=== PATIENT | male | born 1965 | race Caucasian/White ===

== ENCOUNTER 2017-12-05 13:37 | Emergency (ER) | payer OTHER ==
[~2017-12-05] VITALS: Ht 180.3 cm; Wt 90.7 kg
[~2017-12-05 13:37] MED LIST: AMITRIPTYLINE H10 M3 PO; BACTRIM DS TAB1 EACH PO; BENICAR; CHLORZOXAZONE500 MG PO; CLEOCIN HCL300 MG PO; DAYPRO600 MG PO; DESYREL50 MG PO; ELAVIL; ENDOCET 10-6501 EACH PO; FLEXERIL PO; GABAPENTIN; HYDROCODON-ACE1 EAC7 PO; IBUPROFEN 600600 M1 PO; LEVAQUIN 500 M500 M2 PO; LIPITOR 20 MG T20 M1 PO; NASAL SPRAY30 ML NS; NEURONTIN600 MG PO; NITROGLYCERIN0.4 MG SUBLING; NORCO 5-325 TA1 EACH PO; NORVASC10 MG PO; PERCOCET 10-321 EACH; PERCOCET 10-321 EACH PO; PERCOCET 10-651 EACH PO; PERCOCET PO; TRAMADOL 50 MG50 MG PO; TRAZODONE 150150 M1 PO; ULTRAM 50MG TAB50 MG; VALIUM5 MG PO; [UNRECOGNIZED DRUG - REMARK]
[2017-12-05] MEDS ORDERED: KEFLEX500 M1 PO (14:18)
[2017-12-05] MEDS ORDERED: BACTRIM DS TAB1 EACH PO (14:18)
[2017-12-05 14:51] VITALS: BP 168/110
== END 2017-12-05 14:52 | disposition home or self-care (01) ==
LOC: M.ERS 13:37
DX: L02.413 Cutaneous abscess of right upper limb (principal); I10 Essential (primary) hypertension; G62.9 Polyneuropathy, unspecified; Z88.1 Allergy status to other antibiotic agents; Z88.5 Allergy status to narcotic agent; Z88.8 Allergy status to other drugs, medicaments and biological substances; Z88.0 Allergy status to penicillin; Z91.013 Allergy to seafood; Z90.89 Acquired absence of other organs

== ENCOUNTER 2018-02-07 12:17 | Inpatient (IN) | payer OTHER ==
[~2018-02-07] VITALS: Ht 177.8 cm; Wt 88.5 kg
[2018-02-07] VITALS (19 sets, daily range): BP systolic 62–158; BP diastolic 42–120
[~2018-02-07 12:17] MED LIST changes: +KEFLEX500 M1 PO
--- NOTE | 2018-02-07 13:01 | NUR ---
PT TO GEOLOGICAL SPECIALIST
[2018-02-07 13:03] LABS: ANION GAP 12 mmol/L (7-16); BUN 19 mg/dL (7-18); CALCIUM 9.7 mg/dL (8.5-10.1); CHLORIDE 102 mmol/L (98-107); CO2 27 mmol/L (21-32); CREATININE 1.2 mg/dL (0.6-1.3); GLUCOSE 147 mg/dL (70-99); POTASSIUM 3.5 mmol/L (3.5-5.1); SODIUM 141 mmol/L (136-145)
[2018-02-07 13:06] LABS: INR 1.1; PROTIME 11.4 Seconds (9.20-11.50)
[2018-02-07 13:11] LABS: ABSOLUTE BASOPHILS 0.1 thou/uL (0.0-0.2); ABSOLUTE EOSINOPHILS 0.2 thou/uL (0.0-0.7); ABSOLUTE LYMPHOCYTES 2.5 thou/uL (0.8-5.3); ABSOLUTE MONOCYTES 0.8 thou/uL (0.0-1.2); ABSOLUTE NEUTROPHILS 6.7 thou/uL (1.6-8.1); BASOPHILS 0.9 %; EOSINOPHILS 2.2 %; HEMATOCRIT 45.4 % (42.0-52.0); HEMOGLOBIN 15.1 gm/dL (14.0-18.0); LYMPHOCYTES 23.9 %; MCH 30.3 pg (26.0-34.0); MCHC 33.3 g/dL (28.0-37.0); MONOCYTES 7.4 %; MPV 8.8 fl. (7.2-11.1); NUCLEATED RBCS 0 /100WBC; PLATELET COUNT* 323 thou/uL (150-400); POLYS 65.6 %; RBC 4.99 mil/uL (4.50-6.00); RDW-CV 13.9 % (10.5-14.5); WBC 10.3 thou/uL (4.0-11.0)
[2018-02-07 13:13] LABS: APTT 86.8 Seconds (25.0-31.3)
--- NOTE | 2018-02-07 13:18 | NUR ---
ARRIVED AT 1220- SEE CODE STEMI AND CODE BLUE FLOW SHEET.
[2018-02-07 13:22] LABS: ALBUMIN 3.7 g/dL (3.4-5.0); ALKALINE PHOSPHATASE 82 U/L (46-116); CK-MB MASS 2.3 ng/mL (<0.5-3.6); LIPASE 89 U/L (73-393); MAGNESIUM 1.8 mg/dL (1.8-2.4); NT-PRO BRAIN NAT PEPTIDE 56 pg/mL (<300); SGOT 16 U/L (15-37); SGPT 17 U/L (30-65); TOTAL BILIRUBIN 0.5 mg/dL (<0.1-1.0); TOTAL PROTEIN 7.8 g/dL (6.4-8.2); TROPONIN-I LEVEL <0.06 ng/mL (<0.06)
[2018-02-07 16:46] LABS: BE -9.9 mmol/L (-2 to +3); HCO3 18.6 mmol/L (22.0-26.0); PO2 67.7 mmHg (75.0-100.0)
[2018-02-07 16:47] LABS: pH 7.183 (7.340-7.450)
[2018-02-07 16:48] LABS: PCO2 50.5 mmHg (35.0-45.0)
[2018-02-07 17:41] LABS: AMP/METHAMP POSITIVE (Negative); BARBITURATES Negative (Negative); BENZODIAZEPINES POSITIVE (Negative); COCAINE Negative (Negative); METHADONE Negative (Negative); OPIATES POSITIVE (Negative); PCP Negative (Negative); THC Negative (Negative)
--- NOTE | 2018-02-07 18:00 | NUR ---
PATIENT ARRIVED TO ICU AT 1450 WITH TAPPER OPERATOR STAFF. ON BALLOON PUMP, NOT TOLERATING WELL. DR LINTON CALLED. CHANGES TO ORDERS WERE MADE. NOW ON 1:2 RATIO AND TOLERATING BETTER. INCREASED SEDATION, WEANING OFF PRESSORS AND TOLERATING WELL. PATIENT CONVERTED TO NSR AT 1800 FROM AFIB. STILL CONTINUES TO TOLERATE 1:2 ON BALLOON PUMP, WILL CALL DR LINTON IF CHANGES. 2 SISTERS, BROTHER IN LAW AND FRIEND IN TO SEE PATIENT. ALL INFORMATION GATHERED. PATIENT HAS BEEN HOMELESS FOR A YEAR NOW AND HAS NOT TAKEN MEDICATION FOR 6 MONTHS FROM PREVIOUS STENT A YEAR AGO. ALL BELONGINGS SENT HOME WITH PATIENT. PATIENT STABLE AT THIS TIME ON 4 MCG OF LEVO. REPORT GIVEN TO ANTONINA RGANADOS
--- NOTE | 2018-02-07 20:30 | NUR ---
ASSUMED PT CARE AT 1800. AT 1820 PTS RHYTHM CONVERTED FROM AFIB TO SR, RATE 70-80'S. BP BECAME ELEVATED, LEVOPHED WAS TITRATED OFF. SPOKE TO DR MONTANEZ, NOTIFIED OF RHYTHM CHANGE AND HTN, ORDERS RECEIVED. IABP SETTING CHANGED TO 1:3, PRESSURE CURRENTLY 128/87 PER IABP MONITOR.
[2018-02-08] VITALS (26 sets, daily range): BP systolic 116–142; BP diastolic 77–95
[2018-02-08 03:49] LABS: HEMATOCRIT 38.6 % (42.0-52.0); MCH 30.1 pg (26.0-34.0); MCHC 33.6 g/dL (28.0-37.0); MCV 89.5 fL (80.0-100.0); MPV 8.3 fl. (7.2-11.1); RBC 4.32 mil/uL (4.50-6.00); RDW-CV 14.2 % (10.5-14.5); WBC 8.3 thou/uL (4.0-11.0)
[2018-02-08 05:05] LABS: ALBUMIN 2.8 g/dL (3.4-5.0); CALCIUM 8.6 mg/dL (8.5-10.1); POTASSIUM 3.8 mmol/L (3.5-5.1); TOTAL BILIRUBIN 0.4 mg/dL (<0.1-1.0); TOTAL PROTEIN 5.6 g/dL (6.4-8.2)
[2018-02-08 05:07] LABS: TROPONIN-I LEVEL 25.17 ng/mL (<0.06)
[2018-02-08 05:13] LABS: HCO3 28.7 mmol/L (22.0-26.0); PCO2 39.1 mmHg (35.0-45.0); PO2 79.3 mmHg (75.0-100.0); pH 7.483 (7.340-7.450)
--- NOTE | 2018-02-08 06:54 | NUR ---
PT HAS REMAINED OFF PRESSORS, TOLERATING IABP AT 1:3. IABP BP READINGS CONSISTENTLY CORRELATE APPROXIMATELY 10 MMHG BELOW NIBP. FENTANYL GTT STARTED SO TO ALLOW DECREASE IN PROPOFOL FOR IMPROVED BP. UNABLE TO TITRATE OFF PROPOFOL DUE TO AROUSABILITY WITH MINIMAL STIMULATION, PT ATTEMPTED TO SIT UP AND PULL LINES. DURING THAT TIME PT WAS TRACKING, NODDED HEAD WHEN TOLD HE IS IN THE HOSPITAL DOING WELL. INSTRUCTED PT TO REST, HE AGAIN NODDED AND PUT HIS HEAD DOWN. SEDATION WAS INCREASED AT THAT TIME. AGGRASTAT GTT COMPLETED FOR ONE BAG PER DR LINTON. R GROIN IABP INSERTION SITE OOZING BLOOD INTERMITTENTLY. UNABLE TO BATH TONIGHT DUE TO PRESENCE OF IABP AND BLEEDING AT SITE. REPOSITIONED Q2HR BY TUCKING PILLOW UNDER HIP TO CHANGE PRESSURE POINT. RN 1:1 AT BEDSIDE AT ALL TIMES.
[2018-02-08 10:14] LABS: BE 2.1 mmol/L (-2 to +3); PCO2 54.3 mmHg (35.0-45.0); PO2 78.7 mmHg (75.0-100.0); pH 7.345 (7.340-7.450)
--- NOTE | 2018-02-08 10:40 | NUR ---
WEANING TRIAL SUCCESSFUL. CARDIOLOGY PAGED AND ORDERED TO PLACE BALLOON PUMP IN STANDBY AT 1040. BP 141/91 AND PATIENT IS CALM AND COOPERATIVE. ORDER RECEIVED TO EXTUBE IF CARDIOLOGY IS ABLE TO REMOVE BALLOON PUMP TODAY. WILL CONTINUE TO MONITOR 1:1.
--- NOTE | 2018-02-08 11:22 | CON ---
[address] [address] CONSULTATION Name: MARYJO FORRESTER I Room: [address] IN .R.#: [id number] Admission: 02/07/18 Attend Phys: Desiree Prather Discharge: Date of : 61 Report #: [id number] THIS REPORT FOR: //name// CC: [facility] physician/PCP Rahat Martínez DATE OF SERVICE: 02/07/2018 CHIEF COMPLAINT: Chest pain. HISTORY OF PRESENT ILLNESS: The patient is a 52-year-old man with a history of coronary artery disease, who had approximately one hour of severe chest discomfort and came to the Emergency Room, was noted to have inferior ST segment depression of 2-[address] segment depression involvement as well as diffuse anteroseptal ST segment depression. He was quite diaphoretic. His blood pressures are stable in the 150s-160s systolic. He had been feeling fine until this morning when he had sudden onset of diaphoresis, shortness of breath and the aforementioned chest discomfort. He has a known history of coronary artery disease and had been off of all medications. PAST MEDICAL HISTORY: Significant for coronary artery disease. He reports he had a PCI in March and then had been on Plavix for 3-5 months and he is somewhat unsure, but he has been off of all medications for several weeks now. ALLERGIES: He has no known drug allergies. PAST SURGICAL HISTORY: No recent surgeries. FAMILY HISTORY: Positive for high blood pressure and cholesterol. SOCIAL HISTORY: He is a smoker. REVIEW OF SYSTEMS: GASTROINTESTINAL: No nausea or vomiting. No hematemesis or melena. GENITOURINARY: No dysuria or hematuria. CARDIOVASCULAR: Positive chest pain. PULMONARY: Positive shortness of breath. SKIN: Positive diaphoresis. NEUROLOGIC: Denies seizures. ALLERGIES: Denies any aspirin or contrast dye allergies. PHYSICAL EXAMINATION: VITAL SIGNS: Blood pressure 160/100 in atrial fibrillation with [place] [address] [address] CONSULTATION Name: MARYJO FORRESTER I Room: [address] IN [facility]#: [id number] Admission: 02/07/18 Attend Phys: Desiree Prather Discharge: Date of : 61 Report #: [id number] GENERAL: This is a diaphoretic man in moderate distress. 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 HEENT: No evidence of trauma. Eyes are intact. No facial asymmetry. NECK: Supple. There is no jugular venous distention. CARDIOVASCULAR: Regular. I could not hear a murmur. LUNGS: Clear to auscultation. ABDOMEN: Nontender. EXTREMITIES: There is no peripheral edema. Pulses, radial and dorsalis pedis pulses are normal. Femoral pulses normal. DIAGNOSTIC DATA: ECG shows diffuse ST segment elevation in the inferior leads and lateral leads and ST segment depression in V1 and V2. He is in atrial fibrillation with heart rate of 120. Past data reviewed, heart catheterization in 09/2016 shows that the left main is patent. There is an 80% left anterior descending coronary artery stenosis. The circumflex had moderate disease in the 40-30% range and his right coronary artery was chronically occluded with collaterals. He underwent PCI of the right coronary artery at its mid body. EF was normal. IMPRESSION: 1. Inferior ST segment elevation myocardial infarction. 2. Chronic coronary artery disease. 3. Prior degenerative joint disease. 4. Medical noncompliance. PLAN: After discussing the risks and benefits of proceeding with an invasive evaluation, the patient elects to proceed. He presents a higher risk because of his known history of chronic coronary artery disease and noncompliance. He will be stabilized in the Emergency Room and we will plan for an invasive evaluation. <ELECTRONICALLY SIGNED> By: Benjamín Barfield MD, FACC 02/08/18 1122 1246 1946Benjamín Barfield MD, FACC /nt
--- NOTE | 2018-02-08 12:59 | EKG ---
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 : 1965 Requested By: Anish Ly Order Number: [id number] MD: Benjamín Barfield Measurements Intervals [place] Rate: 88 P: GA: QRS: 47 QRSD: 96 T: 98 QT: 391 QTc: 473 Interpretive Statements Incomplete analysis due to missing data in precordial lead(s) Atrial fibrillation Probable LVH with secondary repol abnrm Inferior infarct, acute (RCA) Probable RV involvement, suggest recording right precordial leads Baseline wander in lead(s) I,II,aVR,V1,V4 Missing lead(s): V6 Compared to ECG 10/17/2016 08:01:44 Myocardial infarct finding now present Sinus rhythm no longer present Right ventricular hypertrophy no longer present T-wave abnormality no longer present ST (T wave) deviation no longer present Electronically Signed On 02-08-2018 12:58:55 WOOD WEB WEAVING MACHINE OPERATOR by Benjamín Barfield [email or web address] <ELECTRONICALLY SIGNED> By: Benjamín Barfield MD, FACC 02/08/18 1258 1227 1227 Benjamín Barfield MD, FACC /EPI
--- NOTE | 2018-02-08 13:01 | EKG ---
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: : 1965 Requested By: Gary Reyes Order Number: [id number] Reading MD: Benjamín Barfield Measurements Intervals [place] Rate: 70 P: 52 ND: 160 QRS: 48 QRSD: 94 T: -25 QT: 435 QTc: 470 Interpretive Statements Sinus rhythm Borderline T abnormalities, inferior leads Compared to ECG 10/17/2016 08:01:44 Right ventricular hypertrophy no longer present ST (T wave) deviation no longer present T-wave abnormality still present Electronically Signed On 02-08-2018 13:00:51 WETLANDS TECHNICIAN by Benjamín Barfield [email or web address] <ELECTRONICALLY SIGNED> By: Benjamín Barfield MD, FACC 02/08/18 1300 0806 0806 Benjamín Barfield MD, FAC /EPI
[2018-02-08 13:19] LABS: CHOLESTEROL 93 mg/dL (<200); HDL CHOLESTEROL 38 mg/dL (>40); LDL CHOLESTEROL 35 mg/dL (<100); SERUM ASSESSMENT Clear; TC:HDL 2.4 Ratio (Not establshd); TRIGLYCERIDE 100 mg/dL (<150); VLDL 20 mg/dL (<40)
--- NOTE | 2018-02-08 20:07 | NUR ---
PT ASSESSMENT CHARTED. VSS THROUGHOUT SHIFT. BALLOON PUMP REMOVED AT 1115. PT EXTUBATED AT 1415. RIGHT GROIN SITE C,D &I WITHOUT HEMATOMA. VENOUS LINE STILL IN. GENERALIZED PAIN. PT IS ON 2L AND TOLERATING WITHOUT DIFFICULTY. PT IS TOLERATING CLEAR LIQUIDS AND WOULD DO WELL WITH A REGULAR DIET. YEE ONLY HAD 400 DARK URINE OUT. NO OTHER COMPLAINTS.
[2018-02-09] VITALS (14 sets, daily range): BP systolic 127–172; BP diastolic 58–103
--- NOTE | 2018-02-09 06:51 | NUR ---
PT REMAINS STABLE. ELEVATED BP TREATED WITH PRN ENALAPRIL X2 WITH GOOD RESULTS. TOLERATING PO INTAKE WITHOUT NAUSEA. O2 SAT REMAINS >92% ON 3L O2 PER NC. PT C/O RIB PAIN, TYLENOL AND IBUPROFEN ORDERED BY DR HAMILTON. PT MOVES INDEPENDENTLY IN BED. CALL LIGHT WITHIN REACH.
--- NOTE | 2018-02-09 08:11 | CON ---
[address] [address] CONSULTATION Name: MARYJO FORRESTER I Room: [address] IN M.R.#: [id number] Admission: 02/07/18 Attend Phys: Desiree Prather Discharge: Date of : 61 Report #: [id number] THIS REPORT FOR: //name// CC: [facility] physician/PCP Rahat Martínez DATE OF SERVICE: 02/08/2018 REASON FOR EVALUATION: Acute respiratory failure. CHIEF COMPLAINT: Chest pain, post-cardiac arrest. HISTORY OF PRESENT ILLNESS: The patient is a 52-year-old gentleman, known to have coronary artery disease, was brought from work with severe chest pain. It lasted for one hour. Initially, he was having a central line placement, had a cardiac arrest, was found to have inferior ST segment depression initially and with lateral ST segment depression as well and diffuse anteroseptal ST segment depression. The patient from the notes arrested for 6 minutes initially with ventricular fibrillation and after 6-minute was in atrial fibrillation per records. 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 Today, he is on intraaortic balloon pump. Yesterday, he was on Levophed, dopamine, which has been weaned off, today balloon pump is being weaned off. On my examination, the patient is sedated with propofol, however, arousable, following commands. Ventilator setting as above, tidal volume of 600, PEEP of 5. Chest x-ray with left base infiltrate. PAST MEDICAL HISTORY: Significant for coronary artery disease, PCI in March. He was not compliant with Plavix. ALLERGIES: None. PAST SURGICAL HISTORY: No recent surgery except PCI. FAMILY HISTORY: High blood pressure. SOCIAL HISTORY: Active smoker. REVIEW OF SYSTEMS: Unable to obtain, from records as above, the patient is intubated. PHYSICAL EXAMINATION: GENERAL: The patient is intubated. VITAL SIGNS: Stable. His respiratory rate is 18, pulse is 69, afebrile, blood pressure 120/82, O2 saturation 98%. [place] [address] CONSULTATION Name: FERNANDOMARYJO EID Jenelle Room: [address]#: [id number] Admission: 02/07/18 Attend Phys: Desiree Prather Discharge: Date of : 61 Report #: [id number] NECK: Supple. No JVD. SKIN: No changes. CHEST: Clear to auscultation, equal breath sounds. CARDIOVASCULAR: Regular rhythm. Normal S1, S2. ABDOMEN: Soft, nontender, obese. EXTREMITIES: No edema. PSYCHIATRIC: Unable to evaluate. NEUROLOGIC: Following commands, arousable, on sedation. LABORATORY DATA: Arterial blood gas today 7.413, pCO2 of 39, pO2 of 79. Vent setting, respiratory rate 18, tidal volume 600, FiO2 of 40% and PEEP of 5. Yesterday, arterial blood gas showed acute hypercapnic respiratory failure. Carbon dioxide today is 28. Chest x-ray, which I have reviewed too, showed a left base infiltrate. A raised hemidiaphragm. ET tube is slightly on the low position. We will pullback. ASSESSMENT AND PLAN: Acute respiratory failure following cardiac arrest with ventricular fibrillation, myocardial infarction, elevated troponin to 25. The patient post-angioplasty currently is awake, hemodynamically stable. We will proceed with weaning trial. A balloon pump being discontinued later today. Active smoker. Recommend the bronchodilator treatment to be used as needed. Possible chronic obstructive pulmonary disease. Smoking cessation highly recommended. Left base infiltrate, suspect that his ET tube was low versus aspiration. We will add Unasyn and obtain chest x-ray followup in the morning. Critical care time was 35 minutes. <ELECTRONICALLY SIGNED> By: Barrie Orellana MD 02/09/18 0811 0907 [id number] Michelle Ellison MD /nt
[2018-02-09 08:32] LABS: HEMATOCRIT 39.7 % (42.0-52.0); HEMOGLOBIN 13.2 gm/dL (14.0-18.0); MCH 30.4 pg (26.0-34.0); MCHC 33.2 g/dL (28.0-37.0); MCV 91.6 fL (80.0-100.0); MPV 8.5 fl. (7.2-11.1); RBC 4.34 mil/uL (4.50-6.00); RDW-CV 14.4 % (10.5-14.5); WBC 12.4 thou/uL (4.0-11.0)
[2018-02-09 08:58] LABS: ALBUMIN 2.5 g/dL (3.4-5.0); CALCIUM 8.9 mg/dL (8.5-10.1); CREATININE 0.9 mg/dL (0.6-1.3); POTASSIUM 4.4 mmol/L (3.5-5.1); TOTAL BILIRUBIN 0.9 mg/dL (<0.1-1.0); TOTAL PROTEIN 6.1 g/dL (6.4-8.2)
[2018-02-09 09:02] LABS: TROPONIN-I LEVEL 7.36 ng/mL (<0.06)
--- NOTE | 2018-02-09 10:45 | NUR ---
SPOKE WITH PT AND SISTER. PT DOES NOT HAVE A HOME OF HIS OWN, HE HAS STAYED VARIOUS PLACES FOR THE PAST 18 MONTHS. HE IS CURRENTLY STAYING WITH A FRIEND IN [address] HE IS ABLE TO RETURN THERE WHEN HE IS DISCHARGED. SISTER SAID THAT PT'S DISABILITY WAS TAKEN AWAY 'A YEAR OR SO AGO.' SHE WAS ASKING WHAT SHE COULD DO TO HELP HIM GET THAT RE-INSTATED. SHE SAID PT HAS NO MONEY FOR MEDICATIONS AND DOES NOT HAVE A PCP. DISCUSSED [facility] A POSSIBILITY FOR PCP FOLLOW UP AFTER DISCHARGE, HE DOES NOT HAVE A CAR BUT POTENTIALLY SOMEONE COULD TAKE HIM TO [facility]. WILL ASK CARDIOLOGY FOR SAMPLES OF ANY MEDS THAT THEY HAVE. SISTER WILLING TO HELP SOMEWHAT AFTER PT IS DISCHARGED BUT SHE SAID PT CANNOT COME LIVE WITH HER. SHE SAID PT IS HESITANT TO FILL OUR FORMS OR SIGN THINGS IF SHE ISN'T WITH HIM AND SHE IS WILLING TO HELP HIM WITH ANY PAPERWORK. PT DOES NOT HAVE A PHONE BUT SISTER, WINSOME, CAN BE CONTACTED AND TONYA REACH HIM AFTER DISCHARGE. HER CELL PHONE IS [phone]. CALLED [employer] AND LEFT A VOICE MAIL WITH ELEONORA ASKING HER TO COME TO THE HOSPITAL TO SCREEN PT FOR MEDICAID TODAY OR TOMORROW.
--- NOTE | 2018-02-09 13:44 | 2DMMODE ---
[place] [address] 2 D/M-MODE ECHOCARDIOGRAM Name: MARYJO FORRESTER I Room: 003 ADM IN [facility]#: [id number] Admission: 02/07/18 Attend Phys: Rahat Martínez Discharge: Date of : 61 Date of Service: 02/09/18 1344 Report #: [id number] THIS REPORT FOR: //name// APPROVED REPORT Study performed: 02/09/2018 10:43:43 EXAM: Comprehensive 2D, Doppler, and color-flow Echocardiogram Patient Location: In-Patient Room #: 003 Status: routine BSA: 2.07 HR: 67 bpm BP: 136/85 mmHg Rhythm: NSR Other Information Study Quality: Good Indications Acute MD 2D Dimensions IVSd: 11.81 (7-11mm) LVOT Diam: 20.57 (18-24mm) LVDd: 33.88 mm PWd: 10.05 (7-11mm) LVDs: 17.37 (25-40mm) Aortic Root: 33.54 mm Volumes Left Atrial Volume (Systole) LA ESV Index: 32.00 mL/m2 Aortic Valve AoV Peak Canelo.: 1.52 m/s AO Peak Gr.: 9.19 mmHg LVOT Max P.89 mmHg AO Mean Gr.: 4.93 mmHg LVOT Mean P.96 mmHg LVOT Max V: 1.49 m/s AO V2 VTI: 23.89 cm LVOT Mean V: 0.90 m/s PACO (VTI): 3.65 cm2 LVOT V1 VTI: 26.25 cm Mitral Valve E/A Ratio: 0.78 MV Decel. Time: 290.95 ms MV E Max Canelo.: 0.66 m/[place] [address] 2 D/M-MODE ECHOCARDIOGRAM Name: MARYJO FORRESTER I Room: [address] IN ..#: [id number] Admission: 02/07/18 Attend Phys: Rahat Martínez Discharge: Date of : 61 Date of Service: 02/09/18 1344 Report #: [id number] MV PHT: 84.38 ms MVA (PHT): 2.61 cm2 TDI E/Lateral E': 7.33 E/Medial E': 7.33 Medial E' Canelo.: 0.09 m/s Lateral E' Canelo.: 0.09 m/s Pulmonary Valve PV Peak Canelo.: 0.99 m/s PV Peak Gr.: 3.89 mmHg Left Ventricle The left ventricle is normal size. basal inferior segment is severely hypokinetic There is normal left ventricular wall thickness. Left ventricular systolic function is normal. The left ventricular ejection fraction is within the normal range. LVEF is 50%. Grade I - abnormal relaxation pattern. Right Ventricle The right ventricle is normal size. The right ventricular systolic function is normal. Atria The left atrium size is normal. The right atrium size is normal. Aortic Valve The aortic valve is normal in structure. No aortic regurgitation is present. There is no aortic valvular stenosis. Mitral Valve The mitral valve is normal in structure. Trace mitral regurgitation. No evidence of mitral valve stenosis. Tricuspid Valve The tricuspid valve is normal in structure. Unable to assess PA pressure. Trace tricuspid regurgitation. Pulmonic Valve The pulmonary valve is normal in structure. There is no pulmonic valvular regurgitation. Great Vessels The aortic root is normal in size. IVC is normal in size and collapses >50% [place] [address] 2 D/M-MODE ECHOCARDIOGRAM Name: MARYJO FORRESTER I Room: [address]#: [id number] Admission: 02/07/18 Attend Phys: Rahat Martínez Discharge: Date of : 61 Date of Service: 02/09/18 1344 Report #: [id number] Pericardium There is no pericardial effusion. <Conclusion> LVEF is 50%. basal inferior segment is severely hypokinetic There is no aortic valvular stenosis. No aortic regurgitation is present. Grade I - abnormal relaxation pattern. The right ventricular systolic function is normal. <ELECTRONICALLY SIGNED> By: Benjamín Barfield MD, FACC 02/09/18 1344 1344 134 Benjamín Barfield MD, FACC /INF
--- NOTE | 2018-02-09 16:36 | NUR ---
PATIENT PROGRESSING TOWARDS GOALS. AOX4 TOWARDS END OF SHIFT. PAIN CONTROLLED WITH 1 TAB HYDOROCODONE. PHYSICIAN EXPLAINED TO PATIENT HE IS NOT ALLOWED TO HAVE NSAIDS OVER THE COUNTER ANYMORE IT REACTS WITH HIS ANTI-PLATELET MEDICATIONS. RIGHT EJ DISCONTINUED BY PATIENT ON ACCIDENT. PRESSURE HELD, HEMOSTASIS REACHED. YEE CATHETER DISCONTINUED TODAY. UP TO CHAIR X1 AND UP NUMEROUS TIMES TO STAND TO URINATE IN URINAL WITH NURSING ASSISTANCE. PATIENT ADVANCED TO HEART HEALTHY DIET. TOLERATING WELL. PATIENT'S SISTER (DPOA) HERE, ALL QUESTIONS ANSWERED. PATIENT'S GIRLFRIEND SPOKE WITH HIM OVER THE PHONE. PATIENT RESTING MOST OF AFTERNOON, DENIES NEEDS WHEN ASKED. ABLE TO MAKE NEEDS KNOWN. CALL LIGHT WITHIN REACH. BED ALARM ON.
[2018-02-10] VITALS (17 sets, daily range): BP systolic 131–170; BP diastolic 81–105
[2018-02-10 03:50] LABS: ABSOLUTE EOSINOPHILS 0.3 thou/uL (0.0-0.7); ABSOLUTE LYMPHOCYTES 1.3 thou/uL (0.8-5.3); ABSOLUTE MONOCYTES 0.5 thou/uL (0.0-1.2); ABSOLUTE NEUTROPHILS 6.1 thou/uL (1.6-8.1); BASOPHILS 0.4 %; EOSINOPHILS 3.2 %; HEMATOCRIT 38.5 % (42.0-52.0); HEMOGLOBIN 12.9 gm/dL (14.0-18.0); MCH 30.4 pg (26.0-34.0); MCHC 33.5 g/dL (28.0-37.0); MCV 90.6 fL (80.0-100.0); MONOCYTES 6.1 %; MPV 8.6 fl. (7.2-11.1); NUCLEATED RBCS 0 /100WBC; PLATELET COUNT* 231 thou/uL (150-400); POLYS 74.3 %; RBC 4.25 mil/uL (4.50-6.00); RDW-CV 14.3 % (10.5-14.5); WBC 8.3 thou/uL (4.0-11.0)
[2018-02-10 03:59] LABS: ALBUMIN 2.6 g/dL (3.4-5.0); CALCIUM 9.1 mg/dL (8.5-10.1); CREATININE 0.9 mg/dL (0.6-1.3); POTASSIUM 3.9 mmol/L (3.5-5.1); TOTAL BILIRUBIN 0.4 mg/dL (<0.1-1.0); TOTAL PROTEIN 6.3 g/dL (6.4-8.2)
--- NOTE | 2018-02-10 06:08 | NUR ---
PROGRESSING TOWARD GOALS. ELEVATED BP EARLY IN SHIFT, CALL PLACED TO DR MONTEZ. PRN HYDRALAZINE GIVEN ORDERED WITH POSITIVE RESULTS. R GROIN CENTRAL LINE INTACT, NO BLEEDING OR HEMATOMA AT SITE. O2 SAT ON RA 94%, WHEN SLEEPING O2 SAT DROPPED TO LOW 80'S. 3L O2 PLACED PER NC WHILE SLEEPING. TOLERATING PO DIET WELL. ASSISTED PT TO STAND X3 TO USE URINAL, STAND BY ASSIST ONLY, STEADY GAIT. CALL LIGHT WITHIN REACH.
[2018-02-10 09:25] LABS: BE 4.1 mmol/L (-2 to +3); HCO3 29.3 mmol/L (22.0-26.0); PO2 80.4 mmHg (75.0-100.0); pH 7.422 (7.340-7.450)
--- NOTE | 2018-02-10 16:27 | NUR ---
PT CARE ASSUMED AFTER REPORT. SR/SB ON MONITOR. PT HR BRADYCARDIC AFTER COREG GIVEN. PRN PAIN MEDICATION GIVEN FOR REPORT OF CHEST PAIN R/T CHEST COMPRESSIONS. UP WITH STAND BY ASSIST. PT TRANSFERED TO ROOM 307. REPORT CALLED TO DARWIN ALLEN. BELONGINGS SENT WITH PT. PROGRESSING TOWARDS GOALS.
--- NOTE | 2018-02-10 17:33 | NUR ---
Saw patient in his room, evaluated him for ambulation, patient was in a NSR 02 at 3L, intermittent course sounding cough, crackles on the right midlobe down, decreased breath sound left base, SA02 94%, respirations nonlabored, coughed up small amount bright red blood, instructed him not to get out of bed by himself and that I was not going to walk him, but We would have him sit up in chair later this evening if he was feeling okay. Reported above assessment to nurse, nurse called ICU nurse who stated he had not had these problems prior to transfer, staff nurse stated she would call the health and safety trainer.
[2018-02-10 19:14] LABS: GLYCOHEMOGLOBIN (HGB A1C) 5.6 % (4.8-5.6)
[2018-02-10 22:54] LABS: URINE BILIRUBIN NEGATIVE (Negative); URINE BLOOD NEGATIVE (Negative); URINE CLARITY CLEAR; URINE COLOR YELLOW; URINE GLUCOSE-RANDOM NEGATIVE (Negative); URINE KETONES NEGATIVE (Negative); URINE LEUKOCYTES-REFLEX NEGATIVE (Negative); URINE NITRITE-REFLEX NEGATIVE (Negative); URINE PROTEIN NEGATIVE (Negative)
[2018-02-11] VITALS (8 sets, daily range): BP systolic 142–181; BP diastolic 87–103
[2018-02-11 04:21] LABS: CALCIUM 9.2 mg/dL (8.5-10.1); CREATININE 0.9 mg/dL (0.6-1.3); POTASSIUM 3.7 mmol/L (3.5-5.1)
--- NOTE | 2018-02-11 05:33 | NUR ---
ASSESSMENT: PT REAMIN ALERT AND ORIENT TIMES FOUR. UP TO BR WITH SBA. C/O PAIN IN CHEST AREA (NON-CARDIAC). PRN PAIN MEDICATIONS GIVEN WITH GOOD RELIEF. VSS, AFEBRILE. REMAIN ON 2 LITERS, WAS TITRATED DOWN WITH 02 SATS > 92%. RIGHT GROIN CENTRAL LINE INTACT, PATENT AND NON-PAINFUL. RIGHT AC PERIPERAL IV FLUSHES WELL. POSSIBLE DISCHARGE TO HOME TODAY. SLOW PROGRESS TOWARDS DC GOALS, WILL CONTINUE TO MONITOR.
--- NOTE | 2018-02-11 12:36 | CARD ---
[address] [address] CARDIAC CATH REPORT Name: MARYJO FORRESTER I Room: [address] IN [facility]#: [id number] Admission: 02/07/18 Attend Phys: Desiree Prather Discharge: Date of : 61 Report #: [id number] THIS REPORT FOR: //name// APPROVED REPORT Study performed: 02/07/2018 12:52:42 Patient Details Patient Status: In-Patient Room #: The patient is a 52 year-old male Procedures Performed cath pci, IABP, venous sheath Indication Abnormal ECG, STEMI , Atrial fibrillation, Chest pain Risk Factors Coronary Artery Disease Previous Procedures/Diagnoses Previous PCI Admission/Lab Medications/Medications given during procedure Glycoprotein IllbIlla Inhibitors, Heparin Unfract. Procedure Narrative The patient was brought emergently to the Cardiac Catheterization Laboratory and was prepped and draped in a sterile manner. The right femoral was infiltrated with 1% Lidocaine subcutaneous anesthesia. A 6 sheath was inserted into the right femoral artery. Coronary angiography was performed using coronary diagnostic catheters. The right coronary system was accessed and visualized with a Diagnostic catheter. The left coronary system was accessed and visualized with a Diagnostic catheter. Left ventricular/Aortic Valve gradient assessed via catheter pullback. There was no hematoma. Arterial sheath was removed at the end of the procedure and a 7 bhutanese sheathless IABP catheter placed and 1:1 counterpulsation was initiated. 7 bhutanese sheath was placed in the right femoral vein. Sheaths were sutured in place at the end of the procedure. Coronary Angiography The patient's coronary anatomy is right dominant. [address] [address] CARDIAC CATH REPORT Name: MARYJO FORRESTER I Room: [address] ..#: [id number] Admission: 02/07/18 Attend Phys: Desiree Prather Discharge: Date of : 61 Report #: [id number] Diagnostic Cath Left Main normal LAD proximal to mid 60%.,sluggish flow because of severe hypotension Diagonal 1 50% Circumflex mid 60-70% focal stenosis OM1 large mid calcified 60-70% then more distal 80% focal stenosis Right Coronary large RCA occluded within stent with thrombus Left Ventriculography Left Ventriculography was not performed. Hemodynamics The left ventricular end diastolic pressure is 20 mmHg. There was no gradient across the aortic valve upon pullback. Pullback from the left ventricle to the aorta revealed no gradient across the aortic valve. PCI Technique Lesion Anticoagulation was achieved with Heparin. iv aggrastat given Percutaneous coronary intervention was performed on the proximal right coronary artery. The lesion stenosis prior to intervention was 100% with AUDELIA 0 flow. A 6 fr jcr4 Guide Catheter was used to engage the rca ostium. A bmw Interventional Guidewire was used to cross the lesion. BALLOON DILATION A Balloon catheter 2.5 x 8 mm was inserted and inflated up to 16atm for 10seconds. Repeat angiography revealed the following post-dilatation results: 80% stenosis. Significant intracoronary thrombus noted. Pronto aspiration catheter inserted and aspiration of rca performed. STENT DEPLOYMENT A bare metal stent 3.5 x 18 mm was inserted and inflated up to 13atm for 15seconds. Repeat angiography revealed the following post-stent deployment results: 0% stenosis. Final angiography reveals 0 % stenosis with AUDELIA 3 flow. Conclusion 1. acute occlusion of a stent in the proximal rca 2. successful placement of a singel bare metal stent in the rca 3. IABP placed in the setting [place] [address] CARDIAC CATH REPORT Name: MITZYMARYJO Jenelle Room: [address] IN [facility]#: [id number] Admission: 02/07/18 Attend Phys: Desiree Prather Discharge: Date of : 61 Report #: [id number] Recommendations Aggressive Medical Therapy Diagnostic Cath Approved by: Benjamín Barfield MD Date/Time: <ELECTRONICALLY SIGNED> By: Uche Herring MD, [facility] 02/11/18 1236 1236 1236Daking Herring MD, FACC /INF
--- NOTE | 2018-02-11 15:34 | NUR ---
SCRAP CRANE OPERATOR SPOKE TO THE PATIENT AND HIS SISTER WINSOME TO ADDRESS THEIR CONCERNS. PATIENT'S SISTER INFORMS THAT SHE HAD WANTED TO F/U ON MEDICAID/DISABILITY [place], PCP INFO, AND NEEDED MEDICATIONS AT D/C. D/C OPERATIONS EXAMINER CONTACTED ELEONORA WITH [employer] AND LEFT A MESSAGE TO RETURN CALL TO DISCUSS CONTACTING PATIENT'S SISTER WINSOME. D/C OPERATIONS EXAMINER ALSO SPOKE TO RN TO INFORM OF THE NEED TO HAVE PATIENT D/C WITH AFFORDABLE MEDICATIONS. D/C OPERATIONS EXAMINER ALSO CONTACTED THE PATIENT'S DTR TO F/U PM HER CONCERNS, AND LEFT A MESSAGE TO RETURN CALL. CM WILL REMAIN AVIALABLE TO ASSIST AND FOLLOW NEEDED.
--- NOTE | 2018-02-11 16:52 | NUR ---
ASSESSMENT COMPLETE. PT ALERT AND ORIENTED X4. PT GIVEN FLEXERIL THIS AM, PT SLEEPY DURING THE MOST PART OF THE MORNING. PT IS ON ROOM AIR WITH ADEQUATE SATS. CXR TODAY SHOWS PNEUMONIA, IV LEVAQUIN ORDERED AND IS GIVEN TO PT BY RESPIRATORY THERAPY. PT IS UP WITH STANDBY ASSIST. CENTRAL LINE TO RIGHT GROIN INTACT. IV IN RIGHT AC, SL. PT UP WITH PT DURING THE DAY. PT TAKES MEDICATION FINE AND TOLERATING DIET. SEE ASSESSMENT AND VITALS FOR OTHER DETAILS. CALL LIGHT WITHIN REACH, WILL CONTINUE PLAN OF CARE
[2018-02-12 03:15] VITALS: BP 139/85
[2018-02-12 04:45] LABS: CALCIUM 9.6 mg/dL (8.5-10.1); CREATININE 0.9 mg/dL (0.6-1.3); POTASSIUM 4.2 mmol/L (3.5-5.1)
[2018-02-12 04:53] LABS: HEMATOCRIT 41.1 % (42.0-52.0); HEMOGLOBIN 13.7 gm/dL (14.0-18.0); MCH 30.2 pg (26.0-34.0); MCHC 33.3 g/dL (28.0-37.0); MCV 90.7 fL (80.0-100.0); MPV 8.7 fl. (7.2-11.1); NUCLEATED RBCS 0 /100WBC; PLATELET COUNT* 282 thou/uL (150-400); RBC 4.53 mil/uL (4.50-6.00); RDW-CV 14.2 % (10.5-14.5); WBC 6.4 thou/uL (4.0-11.0)
[2018-02-12 05:31] LABS: ABSOLUTE BASOPHILS 0.1 thou/uL (0.0-0.2); ABSOLUTE EOSINOPHILS 0.1 thou/uL (0.0-0.7); ABSOLUTE MONOCYTES 0.2 thou/uL (0.0-1.2); PLATELET ESTIMATE ADEQUATE
[2018-02-12 05:32] LABS: ANISOCYTOSIS 1+; POIKILOCYTOSIS 1+
[2018-02-12 08:00] VITALS: BP 132/80
[2018-02-12 12:17] VITALS: BP 142/84
[2018-02-12 16:23] VITALS: BP 144/100
--- NOTE | 2018-02-12 17:17 | NUR ---
SHIFT NOTE - R GROIN LINE DC'ED PER ORDER BY HEAD FILTER TANK TENDER HELPER. TOLERATED WELL. IV REPLACED. PT UP WITH PT AND WALKED HALLS. WILL CONTINUE TO MONITOR.
[2018-02-12 20:00] VITALS: BP 171/112
[2018-02-12 23:40] VITALS: BP 149/91
[2018-02-13] VITALS (7 sets, daily range): BP systolic 142–179; BP diastolic 95–117
[2018-02-13 04:14] LABS: ABSOLUTE BASOPHILS 0.1 thou/uL (0.0-0.2); ABSOLUTE EOSINOPHILS 0.3 thou/uL (0.0-0.7); ABSOLUTE LYMPHOCYTES 1.8 thou/uL (0.8-5.3); ABSOLUTE MONOCYTES 0.6 thou/uL (0.0-1.2); BASOPHILS 1.1 %; EOSINOPHILS 5.4 %; HEMATOCRIT 41.6 % (42.0-52.0); HEMOGLOBIN 14.3 gm/dL (14.0-18.0); MCH 30.8 pg (26.0-34.0); MCHC 34.4 g/dL (28.0-37.0); MCV 89.6 fL (80.0-100.0); MONOCYTES 10.1 %; MPV 8.7 fl. (7.2-11.1); NUCLEATED RBCS 0 /100WBC; PLATELET COUNT* 300 thou/uL (150-400); POLYS 52.4 %; RBC 4.64 mil/uL (4.50-6.00); RDW-CV 14.1 % (10.5-14.5); WBC 5.8 thou/uL (4.0-11.0)
[2018-02-13 04:16] LABS: CALCIUM 9.8 mg/dL (8.5-10.1); POTASSIUM 4.7 mmol/L (3.5-5.1)
--- NOTE | 2018-02-13 06:06 | NUR ---
ASSUMED PATIENT CARE A T 1900. INVESTMENT BANKING MANAGER AND HOURLY ROUNDING COMPLETED DOCUMENTED. PATIENTS DAUGHTER STATES THAT HE WILL NEED A CAB VOUCHER TO GET HOME UPON DISCHARGE. MINOR COMPLAINTS OF PAIN, CONTROLLED WITH ORAL MEDICATIONS
[2018-02-13] MEDS ORDERED: PRINIVIL20 MG PO (13:08)
[2018-02-13] MEDS ORDERED: PLAVIX 75 MG TA75 M1 PO ×2 (13:08→14:37)
[2018-02-13] MEDS ORDERED: COREG6.25 MG PO ×2 (13:09→14:37)
[2018-02-13] MEDS ORDERED: LEVAQUIN 750 M750 MG PO (14:36)
[2018-02-13] MEDS ORDERED: LISINOPRIL40 MG PO (14:37)
[2018-02-13] MEDS ORDERED: LIPITOR 20 MG T20 M1 PO (14:37)
[2018-02-13] MEDS ORDERED: ASPIR 8181 MG PO (14:38)
[2018-02-13] MEDS ORDERED: ACCUNEB SO1.25 MG/1 INH (14:39)
--- NOTE | 2018-02-13 16:40 | NUR ---
EVERTON was informed pt needed rx assistance and possibly a cab voucher. EVERTON spoke with pt sister and spoke with pt about one time rx assist and pt signed acknowledgement. EVERTON spoke with pt nurse about assistance as well. EVERTON faxed form and prescriptions to [place] [id number]. Pt sister to provide pt ride; no longer needs cab and sister will take pt to pharmacy to pick pack worker meds.
== END 2018-02-13 18:58 | disposition home or self-care (01) | DRG 248 ==
LOC: M.ERS 12:17 → M.TBA-CV 13:03 → M.ICU 13:03 → M.3W 02-10 16:27
PROVIDERS: Family Medicine; Internal Medicine Cardiovascular Disease; Internal Medicine Pulmonary Disease; ADMIT Internal Medicine
PROC: 4A023N7 Measurement of Cardiac Sampling and Pressure, Left Heart, Percutaneous Approach (ICD-10-PCS; principal; 2018-02-07)
PROC: B2111ZZ Fluoroscopy of Multiple Coronary Arteries using Low Osmolar Contrast (ICD-10-PCS; principal; 2018-02-07)
PROC: 02703DZ Dilation of Coronary Artery, One Artery with Intraluminal Device, Percutaneous Approach (ICD-10-PCS; principal; 2018-02-07)
PROC: 5A1935Z Respiratory Ventilation, Less than 24 Consecutive Hours (ICD-10-PCS; principal; 2018-02-07)
PROC: 0BH17EZ Insertion of Endotracheal Airway into Trachea, Via Natural or Artificial Opening (ICD-10-PCS; principal; 2018-02-07)
DX: I21.19 ST elevation (STEMI) myocardial infarction involving other coronary artery of inferior wall (principal); J15.6 Pneumonia due to other Gram-negative bacteria; J96.02 Acute respiratory failure with hypercapnia; I46.9 Cardiac arrest, cause unspecified; I49.01 Ventricular fibrillation; E44.0 Moderate protein-calorie malnutrition; I10 Essential (primary) hypertension; G62.9 Polyneuropathy, unspecified; I25.10 Atherosclerotic heart disease of native coronary artery without angina pectoris; F17.210 Nicotine dependence, cigarettes, uncomplicated; M19.90 Unspecified osteoarthritis, unspecified site; E78.5 Hyperlipidemia, unspecified; G89.29 Other chronic pain; M54.9 Dorsalgia, unspecified; J98.6 Disorders of diaphragm; I48.2 Chronic atrial fibrillation; J40 Bronchitis, not specified as acute or chronic; Z79.82 Long term (current) use of aspirin; Z68.28 Body mass index [BMI] 28.0-28.9, adult; Z88.8 Allergy status to other drugs, medicaments and biological substances; Z88.6 Allergy status to analgesic agent; Z88.0 Allergy status to penicillin; Z91.013 Allergy to seafood; Z95.5 Presence of coronary angioplasty implant and graft; Z82.49 Family history of ischemic heart disease and other diseases of the circulatory system; Z91.14 Patient's other noncompliance with medication regimen; Z79.899 Other long term (current) drug therapy; Z23 Encounter for immunization

== ENCOUNTER 2018-08-14 02:01 | Emergency (ER) | payer MEDICARE ==
[~2018-08-14] VITALS: Ht 177.8 cm; Wt 83.9 kg
[~2018-08-14 02:01] MED LIST changes: +ACCUNEB SO1.25 MG/1 INH; +ASPIR 8181 MG PO; +COREG6.25 MG PO; +LEVAQUIN 750 M750 MG PO; +LISINOPRIL40 MG PO; +PLAVIX 75 MG TA75 M1 PO; +PRINIVIL20 MG PO
[2018-08-14 02:38] LABS: ABSOLUTE BASOPHILS 0.1 thou/uL (0.0-0.2); ABSOLUTE EOSINOPHILS 0.2 thou/uL (0.0-0.7); ABSOLUTE LYMPHOCYTES 1.4 thou/uL (0.8-5.3); ABSOLUTE MONOCYTES 0.7 thou/uL (0.0-1.2); ABSOLUTE NEUTROPHILS 5.6 thou/uL (1.6-8.1); BASOPHILS 1.3 %; EOSINOPHILS 2.4 %; HEMATOCRIT 41.1 % (42.0-52.0); HEMOGLOBIN 13.5 gm/dL (14.0-18.0); MCH 30.5 pg (26.0-34.0); MCHC 32.9 g/dL (28.0-37.0); MCV 92.6 fL (80.0-100.0); MONOCYTES 8.2 %; MPV 8.1 fl. (7.2-11.1); NUCLEATED RBCS 0 /100WBC; PLATELET COUNT* 229 thou/uL (150-400); POLYS 70.1 %; RBC 4.44 mil/uL (4.50-6.00); RDW-CV 14.2 % (10.5-14.5)
[2018-08-14 02:51] LABS: ANION GAP 9 mmol/L (7-16); BUN 13 mg/dL (7-18); CALCIUM 9.5 mg/dL (8.5-10.1); CHLORIDE 105 mmol/L (98-107); CO2 29 mmol/L (21-32); GLUCOSE 103 mg/dL (70-99); SODIUM 143 mmol/L (136-145)
[2018-08-14 02:52] LABS: APTT 28.6 Seconds (25.0-31.3); INR 1.1; PROTIME 11.2 Seconds (9.20-11.50)
[2018-08-14 03:03] LABS: ALBUMIN 3.8 g/dL (3.4-5.0); ALKALINE PHOSPHATASE 96 U/L (46-116); CK-MB MASS 2.5 ng/mL (<0.5-3.6); LIPASE 56 U/L (73-393); MAGNESIUM 2.1 mg/dL (1.8-2.4); NT-PRO BRAIN NAT PEPTIDE 57 pg/mL (<300); SGOT 17 U/L (15-37); SGPT 20 U/L (30-65); TOTAL BILIRUBIN 1.3 mg/dL (<0.1-1.0); TOTAL PROTEIN 7.5 g/dL (6.4-8.2); TROPONIN-I LEVEL <0.06 ng/mL (<0.06)
[2018-08-14 03:34] VITALS: BP 170/99
--- NOTE | 2018-08-14 14:09 | EKG ---
[place] [address] ELECTROCARDIOGRAM REPORT Name: MARYJO FORRESTER [id number] Admission: 08/14/18 Attend Phys: Discharge: 08/14/18 Date of : 61 Report #: [id number] THIS REPORT FOR: //name// [facility] ED Test Date: 2018-08-14 Test Time: 02:27:48 Pat Name: MARYJO FORRESTER Department: Room: Gender: M Food Service Hotel Runner: BAYLEE : 1965 Requested By: Anish Ly Order Number: [id number] MD: Uche Herring Measurements Intervals [place] Rate: 105 P: 52 ME: 161 QRS: 27 QRSD: 84 T: QT: 336 QTc: 445 Interpretive Statements Sinus tachycardia Atrial premature complex Consider left ventricular hypertrophy Tall R wave in V2, consider RVH or PMI Baseline wander in lead(s) V2 Compared to ECG 02/08/2018 08:06:48 Atrial premature complex(es) now present Sinus rhythm no longer present Electronically Signed On 08-14-2018 14:09:17 CDT by Uche Herring [email or web address] <ELECTRONICALLY SIGNED> By: Uche Herring MD, [facility] 08/14/18 1409 6 Uche Herring MD, [facility] /EPI
== END 2018-08-14 03:35 ==
LOC: M.ERS 02:01
PROVIDERS: Family Medicine
DX: R07.89 Other chest pain (principal); I10 Essential (primary) hypertension; G62.9 Polyneuropathy, unspecified; Z88.1 Allergy status to other antibiotic agents; Z88.5 Allergy status to narcotic agent; Z88.8 Allergy status to other drugs, medicaments and biological substances; Z88.0 Allergy status to penicillin; Z90.13 Acquired absence of bilateral breasts and nipples; Z90.89 Acquired absence of other organs

== ENCOUNTER 2018-10-07 15:32 | Emergency (ER) | payer MEDICARE ==
[~2018-10-07] VITALS: Ht 175.3 cm; Wt 90.7 kg
[2018-10-07] MEDS ORDERED: KEFLEX500 M1 PO (16:26)
[2018-10-07 16:43] VITALS: BP 130/88
== END 2018-10-07 16:43 | disposition home or self-care (01) ==
LOC: M.ERS 15:32
DX: S61.412A Laceration without foreign body of left hand, initial encounter (principal); I10 Essential (primary) hypertension; G62.9 Polyneuropathy, unspecified; Z88.1 Allergy status to other antibiotic agents; Z88.0 Allergy status to penicillin; Z88.5 Allergy status to narcotic agent; Z91.013 Allergy to seafood; X58.XXXA Exposure to other specified factors, initial encounter; Y93.89 Activity, other specified; Y92.89 Other specified places as the place of occurrence of the external cause; Y99.8 Other external cause status

== ENCOUNTER 2019-01-18 13:09 | Emergency (ER) | payer MEDICARE ==
[~2019-01-18] VITALS: Ht 177.8 cm; Wt 90.7 kg
[2019-01-18] MEDS ORDERED: KEFLEX500 M1 PO (14:21)
[2019-01-18 14:31] VITALS: BP 146/75
== END 2019-01-18 14:32 | disposition home or self-care (01) ==
LOC: M.ERS 13:09
DX: S91.212A Laceration without foreign body of left great toe with damage to nail, initial encounter (principal); I10 Essential (primary) hypertension; I25.2 Old myocardial infarction; G62.9 Polyneuropathy, unspecified; Z90.89 Acquired absence of other organs; Z88.1 Allergy status to other antibiotic agents; Z88.0 Allergy status to penicillin; Z91.013 Allergy to seafood; W29.3XXA Contact with powered garden and outdoor hand tools and machinery, initial encounter; Y93.89 Activity, other specified; Y92.89 Other specified places as the place of occurrence of the external cause; Y99.0 Civilian activity done for income or pay

== ENCOUNTER 2019-09-09 12:03 | Emergency (ER) | payer MEDICARE ==
[~2019-09-09] VITALS: Ht 177.8 cm; Wt 90.7 kg
[2019-09-09] MEDS ORDERED: COREG6.25 MG PO (13:17)
[2019-09-09] MEDS ORDERED: NITROGLYCERIN0.4 MG SUBLING (13:17)
[2019-09-09] MEDS ORDERED: LIPITOR 20 MG T20 M1 PO (13:17)
[2019-09-09] MEDS ORDERED: TRIAMCINOLONE A80 G2 TOP (13:19)
[2019-09-09] MEDS ORDERED: PRINIVIL20 MG PO (13:19)
[2019-09-09] MEDS ORDERED: KEFLEX500 M1 PO (13:21)
[2019-09-09 13:26] VITALS: BP 131/98
== END 2019-09-09 13:27 | disposition home or self-care (01) ==
LOC: M.ERS 12:03
DX: S81.812A Laceration without foreign body, left lower leg, initial encounter (principal); S40.862A Insect bite (nonvenomous) of left upper arm, initial encounter; S40.861A Insect bite (nonvenomous) of right upper arm, initial encounter; S80.862A Insect bite (nonvenomous), left lower leg, initial encounter; S80.861A Insect bite (nonvenomous), right lower leg, initial encounter; L03.116 Cellulitis of left lower limb; I10 Essential (primary) hypertension; G62.9 Polyneuropathy, unspecified; Z76.0 Encounter for issue of repeat prescription; Z90.49 Acquired absence of other specified parts of digestive tract; Z91.013 Allergy to seafood; Z88.0 Allergy status to penicillin; Z88.6 Allergy status to analgesic agent; Z88.8 Allergy status to other drugs, medicaments and biological substances; W57.XXXA Bitten or stung by nonvenomous insect and other nonvenomous arthropods, initial encounter; Y93.89 Activity, other specified; Y92.89 Other specified places as the place of occurrence of the external cause; Y99.8 Other external cause status

== ENCOUNTER 2020-04-11 22:01 | Observation (INO) | payer MEDICARE, OTHER ==
[~2020-04-11] VITALS: Ht 177.8 cm; Wt 93.9 kg
[~2020-04-11 22:01] MED LIST changes: +TRIAMCINOLONE A80 G2 TOP
[2020-04-11 22:08] VITALS: BP 167/106
[2020-04-11 22:37] LABS: ABSOLUTE BASOPHILS 0.1 thou/uL (0.0-0.2); ABSOLUTE EOSINOPHILS 0.3 thou/uL (0.0-0.7); ABSOLUTE MONOCYTES 0.6 thou/uL (0.0-1.2); ABSOLUTE NEUTROPHILS 3.5 thou/uL (1.6-8.1); BASOPHILS 1.1 %; EOSINOPHILS 4.4 %; HEMATOCRIT 43.8 % (42.0-52.0); HEMOGLOBIN 14.6 gm/dL (14.0-18.0); LYMPHOCYTES 30.6 %; MCH 30.3 pg (26.0-34.0); MCHC 33.3 g/dL (28.0-37.0); MCV 90.9 fL (80.0-100.0); MONOCYTES 8.9 %; MPV 8.8 fl. (7.2-11.1); NUCLEATED RBCS 0 /100WBC; PLATELET COUNT* 218 thou/uL (150-400); RBC 4.81 mil/uL (4.50-6.00); RDW-CV 14.6 % (10.5-14.5); WBC 6.4 thou/uL (4.0-11.0)
[2020-04-11 22:41] LABS: CREATININE 1.1 mg/dL (0.6-1.3); POTASSIUM 4.1 mmol/L (3.5-5.1)
[2020-04-11 22:48] LABS: APTT 29.3 Seconds (25.0-31.3); INR 1.1; PROTIME 11.5 Seconds (9.20-11.50)
[2020-04-11 22:52] LABS: ALBUMIN 3.9 g/dL (3.4-5.0); TOTAL BILIRUBIN 0.4 mg/dL (<0.1-1.0); TOTAL PROTEIN 7.6 g/dL (6.4-8.2)
[2020-04-12] VITALS (7 sets, daily range): BP systolic 151–170; BP diastolic 97–121
[2020-04-12 06:51] LABS: AMP/METHAMP POSITIVE (Negative); BARBITURATES Negative (Negative); BENZODIAZEPINES Negative (Negative); COCAINE Negative (Negative); METHADONE Negative (Negative); OPIATES POSITIVE (Negative); PCP Negative (Negative); THC Negative (Negative)
[2020-04-12] MEDS ORDERED: ASPIR 8181 MG PO (08:08)
[2020-04-12] MEDS ORDERED: LIPITOR 20 MG T20 M1 PO (08:08)
[2020-04-12] MEDS ORDERED: NITROGLYCERIN0.4 MG SUBLING (08:08)
[2020-04-12 08:53] LABS: CHOLESTEROL 130 mg/dL (<200); HDL CHOLESTEROL 46 mg/dL (>40); LDL CHOLESTEROL 71 mg/dL (<100); SERUM ASSESSMENT Clear; TC:HDL 2.8 Ratio (Not establshd); TRIGLYCERIDE 66 mg/dL (<150); VLDL 13 mg/dL (<40)
--- NOTE | 2020-04-12 10:30 | EKG ---
[place] [address] ELECTROCARDIOGRAM REPORT Name: MARYJO FORRESTER I Room: [address] M.R.#: [id number] Admission: 04/12/20 Attend Phys: Rahat Martínez Discharge: Date of : 61 Date of Service: 04/11/202208 Report #: [id number] THIS REPORT FOR: //name// [facility] ED Test Date: 2020-04-11 Test Time: 22:09:53 Pat Name: MARYJO FORRESTER Department: Room: [facility] Gender: M Delicatessen Department Manager: ZACHARY : 1965 Requested By: Crystal Little Order Number: [id number] MD: Uche Herring Measurements Intervals [place] Rate: 98 P: 56 [place]: 160 QRS: 31 QRSD: 88 T: 109 QT: 331 QTc: 423 Interpretive Statements Sinus tachycardia Atrial premature complex Biatrial enlargement Abnormal R-wave progression, early transition Probable left ventricular hypertrophy Nonspecific T abnormalities, lateral leads Baseline wander in lead(s) V1,V3 Compared to ECG 08/14/2018 02:27:48 pac no noted Electronically Signed On 04-12-2020 10:30:35 DIGITAL PRODUCTION OPERATOR by Uche Herring [email or web address] <ELECTRONICALLY SIGNED> By: Uche Herring MD, [facility] 04/12/20 1030 08 08 Uche Herring MD, [facility] /EPI
--- NOTE | 2020-04-12 16:25 | EKG ---
[place] [address] ELECTROCARDIOGRAM REPORT Name: MARYJO FORRESTER I Room: [address] M.R.#: [id number] Admission: 04/12/20 Attend Phys: Rahat Martínez Discharge: Date of : 61 Date of Service: 04/12/[address] Report #: [id number] THIS REPORT FOR: //name// [facility] Test Date: 2020-04-12 Test Time: 06:26:15 Pat Name: MARYJO FORRESTER Department: Room: [place] [address] Gender: M Camelid Fiber Sorter: ANTONY : 1965 Requested By: Crystal Little Order Number: [id number] Jonathan MD: Uche Herring Measurements Intervals [place] Rate: 104 P: 65 [place]: 172 QRS: 34 QRSD: 89 T: 65 QT: 362 QTc: 477 Interpretive Statements Sinus tachycardia Atrial premature complex Right atrial enlargement Abnormal R-wave progression, early transition Borderline prolonged QT interval Compared to ECG 04/11/2020 22:09:53 no change Electronically Signed On 04-12-2020 16:25:16 FOOD PREPARATION SUPERVISOR by Uche Herring [email or web address] <ELECTRONICALLY SIGNED> By: Uche Herring MD, [facility] 04/12/20 1625 0626 Uche Herring MD, [facility] /EPI
--- NOTE | 2020-04-12 16:52 | CARD ---
[address] [address] CARDIAC CATH REPORT Name: MARYOJ FORRESTER I Room: [address] Sae Sifuentes#: [id number] Admission: 04/12/20 Attend Phys: Desiree Prather Discharge: Date of : 61 Report #: [id number] THIS REPORT FOR: cc: FAM - No family physician/PCP FAM - No family physician/PCP ~ Uche Herring MD [facility] ADDENDUM APPROVED REPORT Study performed: 04/12/2020 12:28:16 Patient Details Patient Status: In-Patient Room #: 227 The patient is a 54 year-old male Event Personnel Uche Herring Data Warehouse Consultant, Terra Danielle RN Parts Counter Clerk, Boone Santa RN Parts Counter Clerk, Sharmila Zimmerman RTR Monitor, Lisandro Cohen Scrub Procedures Performed Art Access - R radial artery , Coronary Angiography Only [id number] Brenden ESTEVEZ with Hemoband Indication Chest pain Risk Factors Hypercholesterolemia, Coronary Artery DiseaseHypertension, Tobacco History () Previous Procedures/Diagnoses Previous PCI Admission/Lab Medications/Medications given during procedure Solumedrol IV 125 mg, Benadryl IV 50 mg, Nitroglycerin IA 400 mcg, Verapamil IA 5 mg Procedure Narrative The patient was brought electively to the Cardiac Catheterization Laboratory and was prepped and draped in a sterile manner. The right wrist was infiltrated with 2% Lidocaine subcutaneous anesthesia. A 6F Slender [place] sheath was inserted into the right radial artery. Coronary angiography was performed using coronary diagnostic [place] [id number] CARDIAC CATH REPORT Name: MITZYMARYJO Jenelle Room: [address] Sae Sifuentes#: [id number] Admission: 04/12/20 Attend Phys: Desiree Prather Discharge: Date of : 61 Report #: [id number] catheters. The right coronary system was accessed and visualized with a 6F JR4 catheter. The left coronary system was accessed and visualized with a 6F JL4 catheter. Closure device was deployed with a 6 Fr Radial Vasc-Band Reg 24cm. The patient tolerated the procedure well and there were no complications associated with the procedure. There was no hematoma. Unable to cross aortic valve with pigtail catheter because of tortuous aorta. In the future I would consider procedure from the femoral approach. Unable to cannulate left main artery. Coronary arteries visualized with left cusp injection. Intraoperative Conscious Sedation Sedation start time: 13:32 Case end Time: 13:55 Fentanyl 25 mcg Versed 2 mg Fluoro Time: 3.2 minutes Dose: DAP 65396 cGycm2 922 mGy Contrast Type and Amount: Omnipaque 170 ml Coronary Angiography The patient's coronary anatomy is co- dominant. Diagnostic Cath Left Main 0% stenosis LAD 30% mid stenosis Circumflex 0% stenosis Right Coronary 30% proximal stenosis. Stent in mid RCA had 0% restenosis. Distal RCA had 30% stenosis RPLV 70% ostial stenosis Left Ventriculography Left Ventriculography was not performed. Hemodynamics The aortic pressure is 151/102 mmHg with a mean of 119 mmHg. Conclusion 1. no restenosis noted of the stent in the mid RCA 2. suspect [place] [address] CARDIAC CATH REPORT Name: MARYJO FORRESTER I Room: [address]#: [id number] Admission: 04/12/20 Attend Phys: Desiree Prather Discharge: Date of : 61 Report #: [id number] Recommendations Aggressive Medical Therapy <ELECTRONICALLY SIGNED> By: Uche Herring MD, FACC 04/12/201650 50 kaz Herring MD, FACC /INF
[2020-04-13] VITALS: BP 142/106
[2020-04-13 04:39] VITALS: BP 147/97
[2020-04-13 05:55] VITALS: BP 142/106
[2020-04-13 08:00] VITALS: BP 128/77
[2020-04-13 09:41] VITALS: BP 128/77
--- NOTE | 2020-04-13 14:33 | CON ---
[address] [address] CONSULTATION Name: MARYJO FORRESTER I Room: [address] Sae Sifuentes#: [id number] Admission: 04/12/20 Attend Phys: Desiree Prather Discharge: 04/13/20 Date of : 61 Report #: [id number] THIS REPORT FOR: cc: FAM - No family physician/PCP FAM - No family physician/PCP ~ Uche Herring MD [facility] DATE OF SERVICE: 04/12/2020 CARDIOLOGY CONSULTATION HISTORY OF PRESENT ILLNESS: The patient is a 54-year-old single white male who I was asked to see in the hospital after he complained of chest pain. The patient apparently presented in 09/2016 with chest pain here to [place]. He was seen by Dr. Devon Mack. The right coronary artery was totally occluded. Ejection fraction 55%. Dr. Mack then placed a drug-eluting stent in the right coronary artery with reperfusion. Ejection fraction was 60%. Unfortunately, the patient has not had followup since that time. He is no longer taking any medications. He is not very active at this time. Recently, he has been having recurrent chest pain. It is worse if he takes a deep breath or moves his arm. Goes into his shoulders. It can make him short of breath. He has had no fever or cough. He does have occasional fast heartbeat, but has had no syncope. He has had no bleeding. Denied any fever. He finally came to the hospital yesterday and was admitted for further evaluation and treatment. PAST MEDICAL HISTORY: Significant for hernia repair, back surgery at [facility]. He has a history of hypertension, hyperlipidemia. No diabetes. MEDICATIONS: His previous medications include aspirin, Lipitor, carvedilol, Plavix; however, he is not taking any medications at this time. ALLERGIES: HE HAS A PREVIOUS INTOLERANCE TO CODEINE AND PENICILLIN. FAMILY HISTORY: Positive for heart disease. SOCIAL HISTORY: He is , lives with a friend in [place]. 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 He does smoke occasionally. No history of alcohol abuse. He does have a history of illicit drug use including methamphetamines, which he recently used 3 days ago. He apparently has been to rehab twice, used to be homeless and lived at [facility]. PHYSICAL EXAMINATION: GENERAL: Revealed a middle-aged male, [place] [address] CONSULTATION Name: MARYJO FORRESTER I Room: [address] Sae Sifuentes#: [id number] Admission: 04/12/20 Attend Phys: Desiree Prather Discharge: 04/13/20 Date of : 61 Report #: [id number] VITAL SIGNS: His blood pressure was 150/90, pulse is 90, he is afebrile. HEENT: He was anicteric. Conjunctivae pink. Mucous membranes are moist. NECK: Veins do not appear distended. No carotid bruits. CHEST: Clear to auscultation. CARDIOVASCULAR: Regular rate and rhythm. ABDOMEN: Soft. EXTREMITIES: Had no edema. Posterior tibial pulse 2+ bilaterally. SKIN: Cool and dry. NEUROLOGIC: Nonfocal. LYMPH: No adenopathy. MUSCULOSKELETAL: No joint effusion. RADIOLOGICAL DATA: ECG showed a sinus rhythm with nonspecific ST-segment changes. His workup in the Emergency Room yesterday, he had a portable chest x-ray that showed cardiomegaly, elevated left hemidiaphragm, some atelectasis. LABORATORY WORK: Sodium 141, creatinine 1.1. Liver function studies were normal. Troponins all less than 0.06. Previous LDL was only 35. Previous TSH was 0.8. His white blood cell count 6.4, hemoglobin 14.6. His urine drug screen was positive for methamphetamines and opioids. IMPRESSION AND RECOMMENDATIONS: 1. Chest pain. Previous stent. Recommend cardiac catheterization. 2. History of hypertension. The patient has been on a beta-samir in the past. 3. Hyperlipidemia. The patient is on a statin drug in the past. 4. Tobacco abuse. 5. History of illicit drug use. <ELECTRONICALLY SIGNED> By: Uche Herring MD, FACC 04/13/20 1433 0829 0839Daking eHrring MD, FACC /nt
== END 2020-04-13 11:45 | disposition home or self-care (01) ==
LOC: M.ERS 22:01 → M.TBA-ER 04-12 00:10 → M.2W 04-12 00:10
PROVIDERS: Internal Medicine; Personal Emergency Response Attendant; ADMIT Internal Medicine; ATTEND Internal Medicine
DX: I25.110 Atherosclerotic heart disease of native coronary artery with unstable angina pectoris (principal); Z20.822 Contact with and (suspected) exposure to COVID-19; I10 Essential (primary) hypertension; G89.29 Other chronic pain; M54.9 Dorsalgia, unspecified; G62.9 Polyneuropathy, unspecified; Z79.82 Long term (current) use of aspirin; Z79.899 Other long term (current) drug therapy; Z88.1 Allergy status to other antibiotic agents; Z88.5 Allergy status to narcotic agent; Z88.0 Allergy status to penicillin; Z91.013 Allergy to seafood

== ENCOUNTER 2020-06-22 01:05 | Emergency (ER) | payer MEDICARE, OTHER ==
[~2020-06-22] VITALS: Ht 177.8 cm; Wt 90.7 kg
[2020-06-22 01:34] LABS: ABSOLUTE BASOPHILS 0.1 thou/uL (0.0-0.2); ABSOLUTE EOSINOPHILS 0.1 thou/uL (0.0-0.7); ABSOLUTE LYMPHOCYTES 1.3 thou/uL (0.8-5.3); ABSOLUTE MONOCYTES 0.7 thou/uL (0.0-1.2); ABSOLUTE NEUTROPHILS 10.3 thou/uL (1.6-8.1); BASOPHILS 0.7 %; HEMATOCRIT 45.6 % (42.0-52.0); HEMOGLOBIN 15.1 gm/dL (14.0-18.0); LYMPHOCYTES 10.4 %; MCH 30.4 pg (26.0-34.0); MCHC 33.1 g/dL (28.0-37.0); MCV 91.9 fL (80.0-100.0); MONOCYTES 5.5 %; MPV 8.6 fl. (7.2-11.1); NUCLEATED RBCS 0 /100WBC; PLATELET COUNT* 182 thou/uL (150-400); POLYS 82.4 %; RBC 4.97 mil/uL (4.50-6.00); RDW-CV 13.8 % (10.5-14.5); WBC 12.6 thou/uL (4.0-11.0)
[2020-06-22] MEDS ORDERED: CARVEDILOL25 MG PO ×2 (01:35→04:58)
[2020-06-22] MEDS ORDERED: LISINOPRIL20 MG PO ×2 (01:36→04:58)
[2020-06-22] MEDS ORDERED: FAMOTIDINE 10 M10 MG PO (01:36)
[2020-06-22] MEDS ORDERED: PLAVIX 75 MG TA75 MG PO (01:36)
[2020-06-22] MEDS ORDERED: NEURONTIN 300M300 M2 PO (01:37)
[2020-06-22] MEDS ORDERED: FLEXERIL PO ×2 (01:37→04:58)
[2020-06-22] MEDS ORDERED: FLOMAX0.4 MG PO (01:37)
[2020-06-22 01:42] LABS: CALCIUM 9.5 mg/dL (8.5-10.1); CREATININE 1.1 mg/dL (0.6-1.3); POTASSIUM 3.9 mmol/L (3.5-5.1)
[2020-06-22 01:47] LABS: ALBUMIN 3.5 g/dL (3.4-5.0); TOTAL BILIRUBIN 0.8 mg/dL (<0.1-1.0); TOTAL PROTEIN 7.6 g/dL (6.4-8.2)
[2020-06-22 04:18] LABS: URINE BILIRUBIN NEGATIVE (Negative); URINE BLOOD NEGATIVE (Negative); URINE CLARITY CLEAR; URINE COLOR YELLOW; URINE GLUCOSE-RANDOM NEGATIVE (Negative); URINE KETONES NEGATIVE (Negative); URINE LEUKOCYTES-REFLEX NEGATIVE (Negative); URINE NITRITE-REFLEX NEGATIVE (Negative); URINE PROTEIN NEGATIVE (Negative); URINE SPECIFIC GRAVITY 1.015 (1.005-1.030); URINE UROBILINOGEN 0.2 E.U./dl (0.2-1.0)
[2020-06-22 04:27] LABS: AMP/METHAMP POSITIVE (Negative); BARBITURATES Negative (Negative); BENZODIAZEPINES Negative (Negative); COCAINE Negative (Negative); METHADONE Negative (Negative); OPIATES POSITIVE (Negative); PCP Negative (Negative); THC Negative (Negative)
[2020-06-22] MEDS ORDERED: LIPITOR40 MG PO (04:58)
[2020-06-22 05:15] VITALS: BP 148/105
--- NOTE | 2020-06-22 11:02 | EKG ---
[place] [address] ELECTROCARDIOGRAM REPORT Name: MARYJO FORRESTER I Room: [facility]#: [id number] Admission: 06/22/20 Attend Phys: Discharge: Date of : 61 Date of Service: 06/22/20 0133 Report #: [id number] THIS REPORT FOR: //name// [facility] ED Test Date: 2020-06-22 Test Time: 01:33:25 Pat Name: MARYJO FORRESTER Department: Room: Gender: Canning Machine Operator: [place] : 1965 Requested By: Nveaeh Muniz Order Number: [id number] MD: Uche Herring Measurements Intervals [place] Rate: 102 P: 0 [place]: 162 QRS: 22 QRSD: 84 T: -46 QT: 324 QTc: 423 Interpretive Statements Sinus tachycardia Atrial premature complex LAE, consider biatrial enlargement Probable left ventricular hypertrophy Tall R wave in V2, consider RVH or PMI Borderline T abnormalities, inferior leads Baseline wander in lead(s) V4 Compared to ECG 04/12/2020 06:26:15 no change Electronically Signed On 06-22-2020 11:02:29 CDT by Uche Herring [email or web address] <ELECTRONICALLY SIGNED> By: Uche Herring MD, FACC 06/22/20 1102 2 2 Uche Herring MD, FAC /EPI
--- NOTE | 2020-06-22 11:03 | EKG ---
[place] [address] ELECTROCARDIOGRAM REPORT Name: MARYJO FORRESTER I Room: [facility]#: [id number] Admission: 06/22/20 Attend Phys: Discharge: Date of : 61 Date of Service: 06/22/20 0336 Report #: [id number] THIS REPORT FOR: //name// [facility] ED Test Date: 2020-06-22 Test Time: 03:36:08 Pat Name: MARYJO FORRESTER Department: Room: Gender: Crop Roller: [place] : 1965 Requested By: Nevaeh Muniz Order Number: [id number] MD: Uche Herring Measurements Intervals [place] Rate: 95 P: 59 [place]: 156 QRS: 34 QRSD: 91 T: 79 QT: 345 QTc: 434 Interpretive Statements Sinus rhythm Biatrial enlargement Abnormal R-wave progression, early transition Probable LVH with secondary repol abnrm Baseline wander in lead(s) V4 Compared to ECG 06/22/2020 01:33:25 Sinus tachycardia no longer present Atrial premature complex(es) no longer present Electronically Signed On 06-22-2020 11:03:23 CDT by Uche Herring [email or web address] <ELECTRONICALLY SIGNED> By: Uche Herring MD, FACC 06/22/20 1103 0336 0336 Uche Herring MD, FAC /EPI
== END 2020-06-22 05:26 | disposition home or self-care (01) ==
LOC: M.ERS 01:05
PROVIDERS: Emergency Medicine
DX: I10 Essential (primary) hypertension (principal); F15.10 Other stimulant abuse, uncomplicated; Z20.822 Contact with and (suspected) exposure to COVID-19; Z91.14 Patient's other noncompliance with medication regimen; Z88.1 Allergy status to other antibiotic agents; Z88.0 Allergy status to penicillin; Z88.5 Allergy status to narcotic agent; Z91.013 Allergy to seafood

== ENCOUNTER 2020-09-04 17:47 | Inpatient (IN) | payer MEDICARE, OTHER ==
[2020-09-04] VITALS (19 sets, daily range): BP systolic 127–157; BP diastolic 92–113
[~2020-09-04] VITALS: Ht 175.3 cm; Wt 88.0 kg
[~2020-09-04 17:47] MED LIST changes: +CARVEDILOL25 MG PO; +FAMOTIDINE 10 M10 MG PO; +FLOMAX0.4 MG PO; +LIPITOR40 MG PO; +LISINOPRIL20 MG PO; +NEURONTIN 300M300 M2 PO; +PLAVIX 75 MG TA75 MG PO
[2020-09-04 18:09] LABS: ABSOLUTE BASOPHILS 0.1 thou/uL (0.0-0.2); ABSOLUTE EOSINOPHILS 0.2 thou/uL (0.0-0.7); ABSOLUTE LYMPHOCYTES 2.4 thou/uL (0.8-5.3); ABSOLUTE MONOCYTES 0.6 thou/uL (0.0-1.2); ABSOLUTE NEUTROPHILS 4.9 thou/uL (1.6-8.1); BASOPHILS 1.3 %; HEMATOCRIT 45.5 % (42.0-52.0); HEMOGLOBIN 15.5 gm/dL (14.0-18.0); LYMPHOCYTES 28.9 %; MCHC 34.1 g/dL (28.0-37.0); MCV 90.9 fL (80.0-100.0); MONOCYTES 7.9 %; MPV 8.7 fl. (7.2-11.1); NUCLEATED RBCS 0 /100WBC; PLATELET COUNT* 306 thou/uL (150-400); POLYS 59.9 %; RDW-CV 14.1 % (10.5-14.5); WBC 8.2 thou/uL (4.0-11.0)
[2020-09-04 18:18] LABS: CALCIUM 10.2 mg/dL (8.5-10.1); CREATININE 1.6 mg/dL (0.6-1.3); POTASSIUM 3.7 mmol/L (3.5-5.1)
[2020-09-04 18:20] LABS: APTT 22.1 Seconds (25.0-31.3); PROTIME 11.1 Seconds (9.20-11.50)
[2020-09-04 18:28] LABS: MAGNESIUM 2.1 mg/dL (1.8-2.4); TOTAL BILIRUBIN 0.5 mg/dL (<0.1-1.0); TOTAL PROTEIN 8.7 g/dL (6.4-8.2)
--- NOTE | 2020-09-04 18:49 | NUR ---
SEE STEMI SHEET FOR FURTHER DOCUMENTATION
[2020-09-05] VITALS (16 sets, daily range): BP systolic 118–175; BP diastolic 68–111
[2020-09-05 02:57] LABS: HEMATOCRIT 38.9 % (42.0-52.0); HEMOGLOBIN 13.8 gm/dL (14.0-18.0); MCHC 35.4 g/dL (28.0-37.0); MCV 90.4 fL (80.0-100.0); MPV 8.7 fl. (7.2-11.1); RBC 4.3 mil/uL (4.50-6.00); RDW-CV 14.2 % (10.5-14.5); WBC 7.7 thou/uL (4.0-11.0)
[2020-09-05 03:13] LABS: ALBUMIN 3.2 g/dL (3.4-5.0); ALKALINE PHOSPHATASE 92 U/L (46-116); ANION GAP 8 mmol/L (7-16); BUN 15 mg/dL (7-18); CHLORIDE 102 mmol/L (98-107); CHOLESTEROL 127 mg/dL (<200); CO2 28 mmol/L (21-32); CREATININE 1.1 mg/dL (0.6-1.3); GLUCOSE 114 mg/dL (70-99); HDL CHOLESTEROL 42 mg/dL (>40); LDL CHOLESTEROL 65 mg/dL (<100); POTASSIUM 3.8 mmol/L (3.5-5.1); SGOT 38 U/L (15-37); SGPT 21 U/L (30-65); SODIUM 138 mmol/L (136-145); TOTAL BILIRUBIN 0.4 mg/dL (<0.1-1.0); TRIGLYCERIDE 101 mg/dL (<150); VLDL 20 mg/dL (<40)
[2020-09-05 03:15] LABS: SERUM ASSESSMENT Clear
--- NOTE | 2020-09-05 05:53 | NUR ---
ASSUMED PT CARE AT APPROX. 2109. REPORT TAKEN FROM DARWIN SARKAR. PT ADMITTED FOR STEMI. PT HAD A STENT PLACED TO RCA, ANGIOSEAL DEVICE PLACED IN RIGHT FEMORAL GROIN. DRESSING TO RIGHT GROIN IS C/D/I. NO HEMATOMA PRESENT. PT DENIES C/O CHEST PAIN. PT IS A/OX4. 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 HTN NOTED. PT HAS PMH OF HTN AND NON-COMPLIANT W/ MEDICATIONS. PT WAS ON RA. O2 PLACED DURING THE NOC D/T DESAT WHILE SLEEPING. O2 PLACED VIA NC AT 2L/MIN. O2 SATS 96-100%. PT HAS YEE IN PLACE TO DRAIN D/T IMMOBILIZATION. ADMISSION ASSESSMENTS COMPLETE CHARTED. POST CARDIAC CATH DOCUMENTATION COMPLETE CHARTED. MEDICATIONS ADMINISTERED PRESCRIBED. ANGIOMAX COMPLETED AT MIDNIGHT PER ORDER. PT HAS NS INFUSING PRESCRIBED. ORDER RECEIVED TO STOP NS INFUSTION AT 0800. PT RESTED IN BED DURING NOC. PT DENIED C/O CHEST PAIN. PT C/O CHRONIC BACK PAIN. PT REFUSED MEDICATION FOR PAIN. FALL PRECAUTIONS IN PLACE FOR SAFETY. ASSESSMENTS COMPLETE CHARTED. PT CURRENTLY SLEEPING. NO C/O VOICED. WILL CONT. TO MONITOR.
--- NOTE | 2020-09-05 09:50 | EKG ---
[place] [address] ELECTROCARDIOGRAM REPORT Name: RALPH FORRESTER I Room: [address] ADM IN M.R.#: [id number] Admission: 09/04/20 Attend Phys: Ashwini Rivero Discharge: Date of : 61 Date of Service: 09/04/20 175 Report #: [id number] THIS REPORT FOR: //name// [facility] ED Test Date: 2020-09-04 Test Time: 17:51:44 Pat Name: RALPH MITZY Department: Room: [facility] Gender: M Document Processor: OANH : 1965 Requested By: Bakari Rodriguez Order Number: [id number] MD: Ralph Leggett Measurements Intervals [place] Rate: 88 P: 57 [place]: 183 QRS: 45 QRSD: 92 T: 85 QT: 361 QTc: 437 Interpretive Statements Sinus rhythm Consider left ventricular hypertrophy Inferoposterior infarct, acute (RCA) Probable RV involvement, suggest recording right precordial leads Baseline wander in lead(s) V1,V3,V4,V6 Compared to ECG 06/22/2020 03:36:08 Myocardial infarct finding now present Atrial abnormality no longer present Electronically Signed On 09-05-2020 9:50:49 CDT by Ralph Leggett [email or web address] <ELECTRONICALLY SIGNED> By: Ralph Leggett MD, [facility] 09/05/20 0950 175 175 Ralph Leggett MD, [facility] /EPI
--- NOTE | 2020-09-05 09:51 | EKG ---
[place] [address] ELECTROCARDIOGRAM REPORT Name: RALPH FORRESTER I Room: [address] ADM IN M.R.#: [id number] Admission: 09/04/20 Attend Phys: Ashwini Rivero Discharge: Date of : 61 Date of Service: 09/04/20 180 Report #: [id number] THIS REPORT FOR: //name// [facility] ED Test Date: 2020-09-04 Test Time: 18:01:15 Pat Name: RALPH MITZY Department: Room: [address] Gender: M Smoke Eater: OANH : 1965 Requested By: Bakari Rodriguez Order Number: [id number] Jonathan MD: Ralph Leggett Measurements Intervals [place] Rate: 69 P: 79 [place]: 59 QRS: 46 QRSD: 91 T: 87 QT: 357 QTc: 383 Interpretive Statements Sinus rhythm Short TX interval Consider left ventricular hypertrophy Inferoposterior infarct, acute (RCA) Possible RV involvement, suggest recording right precordial leads Baseline wander in lead(s) I,III,aVL,V5,V6 Compared to ECG 09/04/2020 17:51:44 Short TX interval now present Myocardial infarct finding still present Electronically Signed On 09-05-2020 9:51:32 CDT by Ralph Leggett [email or web address] <ELECTRONICALLY SIGNED> By: Ralph Leggett MD, [facility] 09/05/20 0951 00 00 Ralph Leggett MD, [facility] /EPI
--- NOTE | 2020-09-05 09:53 | EKG ---
[place] [address] ELECTROCARDIOGRAM REPORT Name: RALPH FORRESTER I Room: [address] ADM IN M.R.#: [id number] Admission: 09/04/20 Attend Phys: Ashwini Rivero Discharge: Date of : 61 Date of Service: 09/04/202046 Report #: [id number] THIS REPORT FOR: //name// [facility] Test Date: 2020-09-04 Test Time: 20:47:53 Pat Name: RALPH MITZY Department: Room: [facility] Gender: M Jig And Fixture Repairer: MILAGRO : 1965 Requested By: Devon Mack Order Number: [id number] Reading MD: Ralph Leggett Measurements Intervals [place] Rate: 95 P: 66 HI: 171 QRS: 24 QRSD: 90 T: 120 QT: 339 QTc: 426 Interpretive Statements Sinus rhythm [place], consider biatrial enlargement Inferior infarct, old Nonspecific T abnormalities, lateral leads Baseline wander in lead(s) V1,V5 Compared to ECG 09/04/2020 17:51:44 T-wave abnormality now present Myocardial infarct finding still present Electronically Signed On 09-05-2020 9:53:04 CDT by Ralph Leggett [email or web address] <ELECTRONICALLY SIGNED> By: Ralph Leggett MD, [facility] 09/05/20 0953 46 46 Ralph Leggett MD, [facility] /EPI
--- NOTE | 2020-09-05 09:55 | EKG ---
[place] [address] ELECTROCARDIOGRAM REPORT Name: RALPH FORRESTER I Room: [address] ADM IN M.R.#: [id number] Admission: 09/04/20 Attend Phys: Ashwini Rivero Discharge: Date of : 61 Date of Service: 09/05/20 0840 Report #: [id number] THIS REPORT FOR: //name// [facility] Test Date: 2020-09-05 Test Time: 08:40:22 Pat Name: RALPH FORRESTER Department: Room: [facility] Gender: M Flatwork Presser: : 1965 Requested By: Devon Mack Order Number: [id number] Reading MD: Ralph Leggett Measurements Intervals [place] Rate: 77 P: 59 NC: 161 QRS: 23 QRSD: 82 T: 34 QT: 365 QTc: 414 Interpretive Statements Sinus rhythm Abnormal R-wave progression, early transition Minimal ST elevation, anterior leads Baseline wander in lead(s) V2 Compared to ECG 09/04/2020 20:47:53 ST (T wave) deviation now present Myocardial infarct finding no longer present T-wave abnormality no longer present Electronically Signed On 09-05-2020 9:55:06 CDT by Ralph Leggett [email or web address] <ELECTRONICALLY SIGNED> By: Ralph Leggett MD, [facility] 09/05/2055 9 9 Ralph Leggett MD, [facility] /EPI
--- NOTE | 2020-09-05 11:04 | CARD ---
[address] [address] CARDIAC CATH REPORT Name: MARYJO FORRESTER I Room: [address] IN ..#: [id number] Admission: 09/04/20 Attend Phys: Devon Mack MD, Discharge: Date of : 61 Report #: [id number] THIS REPORT FOR: cc: FAM - No family physician/PCP FAM - No family physician/PCP Devon Mack MD [facility] ~ APPROVED REPORT Study performed: 09/04/2020 18:15:14 Patient Details Patient Status: ED Room #: The patient is a 55 year-old male Event Personnel Rachel Early, Lana Rodney RTR Rodney Katz Tiffany RN RN, Devon Mack Sfdc Architect Procedures Performed Art Access - R femoral artery* Left Heart Cath w/LT VGram [id number] LHCLV KASANDRA Revasc AMI Total/Sub Single RCA [id number] AMIREVSING Indication Abnormal ECG, STEMI Risk Factors Hypercholesterolemia, Hypertension Previous Procedures/Diagnoses Previous PCI Admission/Lab Medications/Medications given during procedure Angiomax bolus and infusion. Procedure Narrative The patient was brought emergently to the Cardiac Catheterization Laboratory and was prepped and draped in a sterile manner. The right femoral was infiltrated with 2% Lidocaine subcutaneous anesthesia. IV conscious sedation was used throughout procedure with appropriate monitoring and was performed in the presence of a registered nurse who was an independent trained observer other than the physician performing the procedure. A [place] 6 FR sheath was inserted into the right femoral artery. Coronary angiography [place] [address] CARDIAC CATH REPORT Name: MARYJO FORRESTER I Room: [address] IN ..#: [id number] Admission: 09/04/20 Attend Phys: Devon Mack MD, Discharge: Date of : 61 Report #: [id number] coronary diagnostic catheters. The right coronary system was accessed and visualized with a Diagnostic catheter. The left coronary system was accessed and visualized with a Diagnostic catheter. The left ventricle was accessed and visualized with a Diagnostic catheter. Left ventricular/Aortic Valve gradient assessed via catheter pullback. Pre-demployment femoral angiogram was performed . Closure device was deployed with a 6 Fr Angioseal STS 6Fr. The patient tolerated the procedure well and there were no complications associated with the procedure. There was no hematoma. Intraoperative Conscious Sedation Sedation start time: 1848 Case end Time: 1945 Fentanyl 50 mcg Versed 2 mg Fluoro Time: 24.8 minutes Contrast Type and Amount: Visipaque 240 ml Coronary Angiography The patient's coronary anatomy is right dominant. Diagnostic Cath Left Main 0% narrowing LAD 50% tubular mid vessel narrowing Circumflex 40% tubular mid circumflex narrowing with 30% ostial first marginal narrowing Right Coronary Large dominant vessel with 95% mid vessel stenosis within a previously deployed stent with local thrombus at the site and AUDELIA II/III flow to the distal vessel; there was aneurysmal dilatation at the acute margin with 40% distal narrowing Left Ventriculography Left Ventriculography was not performed. Hemodynamics The aortic pressure is 145/89 mmHg with a mean of 110 mmHg. The left ventricular pressure is 153/7 mmHg with a mean of mmHg. The left ventricular end diastolic pressure is 24 mmHg. There was no gradient across the aortic valve upon pullback. PCI Technique Lesion Anticoagulation was achieved with Angiomax. Percutaneous coronary intervention was performed on the mid right coronary artery. The lesion stenosis prior to intervention was 95% with AUDELIA 2/3 flow. A 6F JR 4.0 Guide Catheter was used to engage the ostium. A IG: [place] [address] CARDIAC CATH REPORT Name: FERNANDOMARYJO EID Jenelle Room: [address]#: [id number] Admission: 09/04/20 Attend Phys: Devon Mack MD, Discharge: Date of : 61 Report #: [id number] ProwaterFlex 180CM Interventional Guidewire was used to cross the lesion. BALLOON DILATION A Balloon catheter Euphora SC 2.0x12mm was inserted and inflated up to 16.00atm for 23seconds. Additional Inflation: 16.00atm for 18seconds. Euphora SC 2.75x12 was inserted and inflated up to 16 rahul for 10 seconds. Additional Inflation: 16 rahul for 9 seconds. STENT DEPLOYMENT A drug-eluting stent Collins RX Stent 3.0X26mm was inserted and inflated up to 18.00atm for 16seconds. Additional Inflation: 21.00atm for 13seconds. Final angiography reveals 10 % stenosis with AUDELIA 3 flow. 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 This made cannulation difficult for definition of the artery and created difficulty in guide positioning. I was able to place a guide just outside the ostium and after wiring and placing the wire in a distal branch was able to draw the guide into the ostium by exerting gentle tension on the wire. This allowed subsequent deployment of sequential balloons and the drug-eluting stent in the mid right coronary artery. This process prolonged the endeavor of recanalizing the right coronary artery, the culprit in the STEMI. Conclusion 1. Acute inferoposterior STEMI 2. Coronary artery disease characterized by the following: A 95% mid right coronary stenosis within a previously deployed stent with local thrombus at the site and AUDELIA II-III flow to the distal right coronary artery B 50% tubular mid LAD narrowing C 40% mid circumflex narrowing with 30% ostial first marginal narrowing 2. Moderately severe elevation of left ventricular end-diastolic [facility] [address] [place] [address] CARDIAC CATH REPORT Name: MARYJO FORRESTER I Room: [address] IN ..#: [id number] Admission: 09/04/20 Attend Phys: Devon Mack MD, Discharge: Date of : 61 Report #: [id number] pressure at rest 3. Successful PCI with deployment of a drug-eluting stent at the site of 95% mid right coronary stenosis with 10% residual narrowing AUDELIA-3 flow to the distal vessel and no residual thrombus Recommendations Cardiac Rehabilitation Referral Medications Administered Aspirin (any) Clopidogrel Diagnostic Cath Approved by: Devon Mack MD Date/Time: 09/05/2020 10:59:43 <ELECTRONICALLY SIGNED> By: Devon Mack MD, [facility] 09/05/20 1104 1104 1104Devon Mack MD, FAC /INF
--- NOTE | 2020-09-05 11:26 | NUR ---
TRANSFERRED TO ROOM 202 VIA . ALL PERSONAL BELONGINGS SENT WITH PT. CM CONSULT ORDERED PT IS HOMELESS AND NEEDS RESOURCES FOR HOUSING AND TO OBTAIN MEDICATIONS. PT HAD TOLD THIS RN THAT HE HAD STOPPED TAKING HIS MEDICATION DUE TO INABILITY TO OBTAIN THEM A MONTH OR TWO PRIOR TO STEMI LAST NIGHT. REPORT GIVEN TO PASQUALE JAMIL RN.
--- NOTE | 2020-09-05 11:46 | 2DMMODE ---
[place] [address] 2 D/M-MODE ECHOCARDIOGRAM Name: RALPH FORRESTER I Room: [address] IN .R.#: [id number] Admission: 09/04/20 Attend Phys: Ashwini Rivero Discharge: Date of : 61 Date of Service: 09/05/20 1146 Report #: [id number] THIS REPORT FOR: cc: FAM - No family physician/PCP FAM - No family physician/PCP Ralph Leggett MD [facility] ~ APPROVED REPORT Study performed: 09/05/2020 09:52:10 EXAM: Comprehensive 2D, Doppler, and color-flow Echocardiogram Patient Location: In-Patient Room #: 008 Status: routine BSA: 2.11 HR: 74 bpm BP: 148/101 mmHg Rhythm: NSR Other Information Study Quality: Good Indications Acute UT 2D Dimensions IVSd: 12.65 (7-11mm) LVOT Diam: 20.97 (18-24mm) LVDd: 34.75 mm PWd: 8.85 (7-11mm) LVDs: 23.76 (25-40mm) Aortic Root: 36.75 mm Volumes Left Atrial Volume (Systole) LA ESV Index: 48.20 mL/m2 Aortic Valve AoV Peak Canelo.: 1.42 m/s AO Peak Gr.: 8.04 mmHg LVOT Max P.24 mmHg AO Mean Gr.: 4.07 mmHg LVOT Mean P.92 mmHg LVOT Max V: 1.25 m/s AO V2 VTI: 21.96 cm LVOT Mean V: 0.78 m/s PACO (VTI): 3.74 cm2 LVOT V1 VTI: 23.76 [place] [address] 2 D/M-MODE ECHOCARDIOGRAM Name: RALPH FORRESTER I Room: [address] IN M.R.#: [id number] Admission: 09/04/20 Attend Phys: Ashwini Rivero Discharge: Date of : 61 Date of Service: 09/05/20 1146 Report #: [id number] Mitral Valve E/A Ratio: 0.70 MV Decel. Time: 290.07 ms MV E Max Canelo.: 0.60 m/s MV PHT: 84.12 ms MVA (PHT): 2.62 cm2 TDI E/Lateral E': 7.50 E/Medial E': 10.00 Medial E' Canelo.: 0.06 m/s Lateral E' Canelo.: 0.08 m/s Pulmonary Valve PV Peak Canelo.: 1.19 m/s PV Peak Gr.: 5.68 mmHg Left Ventricle The left ventricle is normal size. There is normal LV segmental wall motion. Mild concentric left ventricular hypertrophy. Left ventricular systolic function is normal. LVEF is 60-65%. Grade I - abnormal relaxation pattern. Right Ventricle The right ventricle is normal size. The right ventricular systolic function is normal. Atria Left atrium is moderately dilated. Right atrium is mildly dilated. Aortic Valve The aortic valve is normal in structure. No aortic regurgitation is present. There is no aortic valvular stenosis. Mitral Valve The mitral valve is normal in structure. There is no mitral valve regurgitation noted. No evidence of mitral valve stenosis. Tricuspid Valve The tricuspid valve is normal in structure. There is no tricuspid valve regurgitation noted. Pulmonic Valve The pulmonary valve is normal in structure. There is no pulmonic valvular [place] [address] 2 D/M-MODE ECHOCARDIOGRAM Name: RALPH FORRESTER I Room: [address] IN [facility].#: [id number] Admission: 09/04/20 Attend Phys: Ashwini Rivero Discharge: Date of : 61 Date of Service: 09/05/20 1146 Report #: [id number] The aortic root is normal in size. IVC is normal in size and collapses >50% with inspiration. Pericardium There is no pericardial effusion. <Conclusion> The left ventricle is normal size. Mild concentric left ventricular hypertrophy. Left ventricular systolic function is normal. LVEF is 60-65%. Grade I - abnormal relaxation pattern. There is normal LV segmental wall motion. Left atrium is moderately dilated. Right atrium is mildly dilated. <ELECTRONICALLY SIGNED> By: Ralph Leggett MD, FACC 09/05/20 1146 1146 1146 Ralph Leggett MD, FACC /INF
--- NOTE | 2020-09-05 14:02 | H ---
[place] [address] HISTORY AND PHYSICAL Name: MARYJO FORRESTER I Room: [address] IN M.R.#: [id number] Admission: 09/04/20 Attend Phys: Devon Mack MD, Discharge: Date of : 61 Report #: [id number] THIS REPORT FOR: cc: FAM - No family physician/PCP FAM - No family physician/PCP Devon Mack MD [facility] ~ ADMIT DATE: 09/04/2020 HISTORY OF PRESENT ILLNESS: The patient is a 55-year-old male with significant antecedent cardiovascular disease with prior stenting of the right coronary artery. Most recent catheterization revealed no hemodynamically significant stenoses. The patient has significant hypertension and is noncompliant with medications. He developed severe chest pain this evening and sought assistance in the [facility] Emergency Room. EKG suggested acute inferoposterior ST segment elevation myocardial infarction. The patient had persistent pain, received heparin and aspirin in the ER. PAST MEDICAL HISTORY: Remarkable for prior stenting, hypertension, and medication noncompliance. ALLERGIES: CODEINE, DEMEROL, AND MOBIC. PHYSICAL EXAMINATION: GENERAL: Revealed an acutely distressed middle-aged male. VITAL SIGNS: Blood pressure 160/95, pulse rate is 103, and respirations are 18 per minute and unlabored. CHEST: Clear. CARDIAC: Reveals tachycardic rhythm without murmurs or gallops. ABDOMEN: Soft. EXTREMITIES: Well perfused with intact femoral, radial, and pedal pulses. LABORATORY DATA: EKG reveals acute inferoposterior injury. IMPRESSION: 1. Acute inferoposterior myocardial infarction. 2. Coronary artery disease. 3. Status post prior stenting. 4. Hypertension. 5. ALLERGIES TO CODEINE AND DEMEROL. In this context, the patient was taken to the catheterization laboratory. 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 There were no hemodynamically significant stenosis of the left main, LAD, or circumflex. In this context, I elected to perform PCI, deploying one 3.0 x 26 mm Collins drug-eluting stent in the mid right coronary artery after significant predilatation. This revealed 10% residual narrowing, AUDELIA III flow to the distal vessel and no residual thrombus. We then placed a catheter in the left ventricular cavity and an end-diastolic pressure was 18 mmHg. The catheter was withdrawn and the sheath was removed and Angio-Seal device was placed in the right femoral site. IMPRESSION: 1. Acute inferoposterior ST segment elevation myocardial infarction. 2. Status post acute percutaneous coronary intervention to the right coronary artery. 3. Hypertension. 4. Medication noncompliance. 5. Allergies as noted above. Thirty five minutes of critical care time from 19:30 to 20:05 on 09/04/2020. <ELECTRONICALLY SIGNED> By: Devon Mack MD, [facility] 09/05/20 1402 1905 1937Devon Mack MD, [facility] /nt
--- NOTE | 2020-09-05 15:43 | NUR ---
PT TRANSFERED ROM ICU AROUND 1130 [facility] ALL BELONGINGS, I AGREE WITH THE PREVIOUS NURSES ASSESSMENT. PTS IS AMBULATIN WITH STANDBY ASSIST, AT BEDSIDE.
[2020-09-06 04:23] VITALS: BP 148/100
[2020-09-06 04:33] LABS: CALCIUM 9.1 mg/dL (8.5-10.1); POTASSIUM 4.3 mmol/L (3.5-5.1)
[2020-09-06 08:19] VITALS: BP 164/101
[2020-09-06] MEDS ORDERED: PLAVIX 75 MG TA75 MG PO (08:21)
[2020-09-06] MEDS ORDERED: LIPITOR40 MG PO (08:21)
[2020-09-06] MEDS ORDERED: NITROGLYCERIN0.4 MG SUBLING (08:21)
[2020-09-06] MEDS ORDERED: METOPROLOL TART25 MG PO (08:22)
[2020-09-06] MEDS ORDERED: LISINOPRIL20 MG PO (08:22)
[2020-09-06 11:56] VITALS: BP 159/100
[2020-09-06 12:51] VITALS: BP 142/93
[2020-09-06 15:15] VITALS: BP 142/93
--- NOTE | 2020-09-06 16:14 | NUR ---
pt left facillity at 1615 with belongings accompanied by staff with discharge instructions and all of his belongings. IVs removed and heart monitor.
--- NOTE | 2020-09-08 09:38 | D ---
[address] [address] DISCHARGE SUMMARY Name: MARYJO FORRSETER I Room: [address] IN M.R.#: [id number] Admission: 09/04/20 Attend Phys: Devon Mack MD, Discharge: 09/06/20 Date of : 61 Report #: [id number] THIS REPORT FOR: cc: FAM - No family physician/PCP FAM - No family physician/PCP Devon Mack MD [facility] ~ DATE OF DISCHARGE: 09/06/2020 LOCATION: The patient discharged from room 202. FINAL DISCHARGE DIAGNOSES: 1. Acute inferoposterior ST segment elevation myocardial infarction. 2. Coronary artery disease. 3. Hypertension. 4. Hyperlipidemia. 5. Status post percutaneous coronary intervention to the mid right coronary artery. 6. History of noncompliance. PROCEDURES: 09/04/2020 -- left heart catheterization, selective coronary arteriography, percutaneous coronary intervention with deployment of a drug-eluting stent in mid right coronary artery. HOSPITAL COURSE: The patient is a 55-year-old male with a history of coronary artery disease and prior right coronary stenting. He has underlying hyperlipidemia, hypertension and a history of medication noncompliance. On the afternoon of 09/04/2020, he developed chest pain which persisted and he ultimately sought assistance in the [facility] Emergency Room. EKG there revealed inferoposterior injury with inferior ST segment elevation and right precordial ST segment depression. This was compatible with an acute inferoposterior STEMI. In this context, I was asked to see the patient and concur with the impressions. He received heparin and aspirin in the ER and was transferred to the laboratory operations coordinator. He underwent acute catheterization with definition of subtotal occlusion of the mid right coronary artery. There were no significant left main, LAD, or circumflex stenosis. 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 The patient had only a modest increase in peak troponin to 10.3 and echocardiogram on 09/05/2020 revealed normal global systolic function with estimated ejection fraction of 60-65% without segmental [place] [address] DISCHARGE SUMMARY Name: MARYJO FORRESTER I Room: [address]#: [id number] Admission: 09/04/20 Attend Phys: Devon Mack MD, Discharge: 09/06/20 Date of : 61 Report #: [id number] LABORATORY DATA: Predischarge revealed a sodium 140, potassium 4.3, BUN 17, creatinine 1.0, glucose 108, hemoglobin 13.8, white blood cell count 7700 with 227,000 platelets. Cholesterol 127, triglycerides 101, HDL 42, LDL 65. He ambulated in the hallways without difficulty and there was good hemostasis at the right femoral site of catheterization. DISCHARGE MEDICATIONS: He was discharged home on the following medications: Metoprolol tartrate 25 mg b.i.d., aspirin 81 mg daily, famotidine 10 mg daily, Flexeril 10 mg at bedtime, tamsulosin or Flomax 0.4 mg daily, gabapentin 300 mg t.i.d., clopidogrel or Plavix 75 mg daily, atorvastatin 40 mg at bedtime, p.r.n. sublingual nitroglycerin 0.4 mg as needed, and lisinopril 20 mg daily. He is scheduled to see our nurse practitioner, Aimee Mandel on 09/22/2020. Therefore, the patient is discharged home in stable condition on the aforementioned medications with followup as described above. DISCHARGE TIME: 45 minutes from 1500 to 1545 on 09/06/2020. <ELECTRONICALLY SIGNED> By: Devon Mack MD, [facility] 09/08/20 0938 1447 [id number] Mack MD, FAC /nt
== END 2020-09-06 16:23 | disposition home or self-care (01) | DRG 246 ==
LOC: M.ERS 17:47 → M.2W 19:54 → M.TBA-CV 19:54 → M.ICU 19:54 → M.2W 09-05 11:19
PROVIDERS: Emergency Medicine Emergency Medical Services; ADMIT Internal Medicine; ATTEND Internal Medicine
PROC: B211YZZ Fluoroscopy of Multiple Coronary Arteries using Other Contrast (ICD-10-PCS; principal; 2020-09-04)
PROC: 4A023N7 Measurement of Cardiac Sampling and Pressure, Left Heart, Percutaneous Approach (ICD-10-PCS; principal; 2020-09-04)
PROC: 027034Z Dilation of Coronary Artery, One Artery with Drug-eluting Intraluminal Device, Percutaneous Approach (ICD-10-PCS; principal; 2020-09-04)
DX: I21.11 ST elevation (STEMI) myocardial infarction involving right coronary artery (principal); I50.31 Acute diastolic (congestive) heart failure; I25.10 Atherosclerotic heart disease of native coronary artery without angina pectoris; G62.9 Polyneuropathy, unspecified; E78.5 Hyperlipidemia, unspecified; Z20.822 Contact with and (suspected) exposure to COVID-19; Z98.1 Arthrodesis status; I25.2 Old myocardial infarction; Z79.01 Long term (current) use of anticoagulants; Z79.82 Long term (current) use of aspirin; Z79.899 Other long term (current) drug therapy; Z88.8 Allergy status to other drugs, medicaments and biological substances; Z88.5 Allergy status to narcotic agent; Z88.0 Allergy status to penicillin; Z91.013 Allergy to seafood; I11.0 Hypertensive heart disease with heart failure